=== PATIENT | female | born 1945 | race Caucasian/White ===

== ENCOUNTER 2022-01-03 09:52 | Outpatient (CLI) | payer MEDICARE, SELFPAY ==
[2022-01-03 11:24] LABS: Chloride* 100 mmol/L (96-114)
[2022-01-03 11:25] LABS: Albumin* 4.8 g/dL (3.3-5.0); Potassium* 4.7 mmol/L (3.6-5.1); Sodium* 138 mmol/L (135-149)
[2022-01-03 11:27] LABS: Cholesterol* 252 mg/dL (90-199)
[2022-01-03 11:28] LABS: Alanine Aminotransferase* 20 U/L (4-35); Alkaline Phosphatase* 85 U/L (40-150); Aspartate Amino Transferase* 33 U/L (12-35); Bilirubin Total* 0.4 mg/dL (0.1-1.5); Blood Urea Nitrogen* 27 mg/dL (7-30); Calcium* 10.1 mg/dL (8.4-10.6); Carbon Dioxide* 30 mmol/L (20-32); Creatinine* 1.2 mg/dL (0.5-1.5); Estimated Glomerular Filt Rate 47 ml/min; Glucose* 91 mg/dL (60-115); Total Protein* 7.3 g/dL (6.0-8.3); Triglycerides* 61 mg/dL (40-149)
[2022-01-03 11:29] LABS: HDL Cholesterol* 90 mg/dL (>=50); LDL Cholesterol Calculated 150 mg/dL (<100)
[2022-01-03 14:51] LABS: Creatinine Urine 326.7 mg/dL
[2022-01-03 14:56] LABS: Microalbumin Creatinine Ratio 20 mg/g (0-30); Microalbumin Urine 7 mg/dL
== END 2022-01-03 09:53 | disposition home or self-care (01) ==
PROVIDERS: PCP Family Medicine; Visit Provider Family Medicine
DX: E78.5 Hyperlipidemia, unspecified (principal); R94.4 Abnormal results of kidney function studies
CPT/HCPCS: 80053; 80061; 82043; 82570

== ENCOUNTER 2022-07-05 10:09 | Outpatient (CLI) | payer MEDICARE, SELFPAY | END 2022-07-05 10:10 | disposition home or self-care (01) | LOC: NFLDREF 07-06 14:10 | PROVIDERS: PCP Family Medicine; Referring Provider Family Medicine; Visit Provider Family Medicine | DX: I47.1 Supraventricular tachycardia (principal); E78.5 Hyperlipidemia, unspecified; M85.80 Other specified disorders of bone density and structure, unspecified site | CPT/HCPCS: 80053; 80061; 82306; 84443 ==

== ENCOUNTER 2022-09-14 12:58 | Outpatient (CLI) | payer MEDICARE, SELFPAY ==
--- NOTE | 2022-09-14 13:20 | CRLHL7_ITS ---
For Patients: As a result of the Cures Act, medical imaging exams and procedure reports are released immediately into your electronic medical record. You may view this report before your referring provider. If you have questions, please contact your health care provider. BILATERAL SCREENING MAMMOGRAM WITH COMPUTER-AIDED DETECTION AND TOMOSYNTHESIS TECHNIQUE: CC and MLO views were obtained. These mammographic images have been obtained using full-field digital technique. These mammographic images were interpreted with the benefit of computer-aided detection. Breast tomosynthesis was used in this interpretation. COMPARISON FILM: 07/29/21, 07/20/21, 07/03/20. FINDINGS: The breasts are heterogeneously dense, which may obscure small masses. IMPRESSION: There is no radiographic evidence for malignancy. ASSESSMENT: BI-RADS Category 2: Benign RECOMMENDATION: Routine screening mammogram in 1 year. A lay language report of this examination will be provided to the patient. JOSE BLISS M.D. Diagnostic/Nuclear Medicine Radiologist [email or web address] MICKEY:[email or web address] Transcribed: 09/15/2022, 2:[address]/Dictated by: Jose Bliss MD @ 09/15/2022 8:58:00 AM (Electronically Signed)
== END 2022-09-14 12:59 | disposition home or self-care (01) ==
LOC: MAMMO 12:59
PROVIDERS: PCP Family Medicine; Visit Provider Obstetrics & Gynecology
DX: Z12.31 Encounter for screening mammogram for malignant neoplasm of breast (principal); R92.2 Inconclusive mammogram
CPT/HCPCS: 77063; 77067

== ENCOUNTER 2022-12-26 14:30 | Outpatient (RCR) | payer MEDICARE, SELFPAY ==
--- NOTE | 2022-12-22 09:51 | PT.OPEX ---
PT [place] Outpatient Eval PT [facility] Outpatient Eval Start: 12/13/22 10:00 Freq: Status: Active Protocol: Document 12/13/22 11:00 ANGELINA (Rec: 12/13/22 14:09 ANGELINA [id number]) E-signed By Tello Valadez PT Physical Therapy Outpatient Evaluation Insurance Information Insurance Name Medicare B,[employer] Medical Diagnosis Lumbar back pain Treating Diagnosis Core weakness/deconditioning Referring MD David Subjective Subjective Pt. reports onset of LBP a couple of years ago with recent worsening the past 3 months. She has a hard time with any prolonged standing activities like ironing/dishes etc. She hasn't been able to walk for exercise like she used to due to pain symptoms. The acute high level pain has been lessoned recently by some stronger anti-inflammatories. She is very anxious about her diagnosis and potentially doing things that will aggravate her symptoms. PMH includes; Heart condition, seizures from epilepsy, neck and upper/mid back pain. Pain Comments 5-10 Date of Last Physician Visit 11/04/22 Current Work Status Retired Preferred Name Guadalupe Objective Other/Pertinent Objective LROM: flexion 100% without pain Extension 50% with pain Bilat. hip mobility WNL except mild limitation right ER negative slump and SLR bilat. abdominal/gluteal weakness Assessment Assessment/Impression Objectively, pt. demonstrates; a very slight framed body type; forward head and flattened spine posture; decreased dynamic balance during gait with mild loss of balance noted at times; excellent overall flexibility; full lumbar flexion without pain; limited lumbar extension with LBP noted; normal bilat. hip ROM/mobility with mild right ER limitation; negative slump and SLR testing; and weakness of abdominals and gluteals with general muscle deconditioning throughout upper and lower extremities. She would benefit from skilled therapy working on a progressive HEP with a lumbar flexion and postural correction bias. Primary Functional Limitations standing, walking, lifting, ironing Plan of Care Rehabilitation Potential Excellent Physical Therapy Goals 1. Pt. will be independent with HEP for self maintenance in 8 weeks. 2. Pt. will demonstrate improved core strength in 8-12 weeks. 3. Pt. will be able to stand longer for ADL's and walk for daily exercise again in 8-12 weeks. Coordination/Communication With Referral Source Treatment Plan/Direct Interventions Manual Therapy,Neuromuscular Re-ed,Self-Care/Home Management,Therapeutic Exercises Frequency/Duration Every other week for 4-8 visits over 12 weeks. Patient Will Be Discharged From Therapy Independent w/HEP, Independently Progressing Evaluation Billing Complexity Moderate Certification Information Physician Comment/Change : Physician NPI Number #
--- NOTE | 2023-02-21 07:53 | PT.OPEX ---
PT [place] Outpatient Eval PT [facility] Outpatient Eval Start: 12/13/22 10:00 Freq: Status: Active Protocol: Document 12/13/22 11:00 ANGELINA (Rec: 12/13/22 14:09 ANGELINA [id number]) E-signed By Tello Valadez PT Physical Therapy Outpatient Evaluation Insurance Information Insurance Name Medicare B,[employer] Medical Diagnosis Lumbar back pain Treating Diagnosis Core weakness/deconditioning Referring MD David Subjective Subjective Pt. reports onset of LBP a couple of years ago with recent worsening the past 3 months. She has a hard time with any prolonged standing activities like ironing/dishes etc. She hasn't been able to walk for exercise like she used to due to pain symptoms. The acute high level pain has been lessoned recently by some stronger anti-inflammatories. She is very anxious about her diagnosis and potentially doing things that will aggravate her symptoms. PMH includes; Heart condition, seizures from epilepsy, neck and upper/mid back pain. Pain Comments 5-10 Date of Last Physician Visit 11/04/22 Current Work Status Retired Preferred Name Guadalupe Objective Other/Pertinent Objective LROM: flexion 100% without pain Extension 50% with pain Bilat. hip mobility WNL except mild limitation right ER negative slump and SLR bilat. abdominal/gluteal weakness Assessment Assessment/Impression Objectively, pt. demonstrates; a very slight framed body type; forward head and flattened spine posture; decreased dynamic balance during gait with mild loss of balance noted at times; excellent overall flexibility; full lumbar flexion without pain; limited lumbar extension with LBP noted; normal bilat. hip ROM/mobility with mild right ER limitation; negative slump and SLR testing; and weakness of abdominals and gluteals with general muscle deconditioning throughout upper and lower extremities. She would benefit from skilled therapy working on a progressive HEP with a lumbar flexion and postural correction bias. Primary Functional Limitations standing, walking, lifting, ironing Plan of Care Rehabilitation Potential Excellent Physical Therapy Goals 1. Pt. will be independent with HEP for self maintenance in 8 weeks. 2. Pt. will demonstrate improved core strength in 8-12 weeks. 3. Pt. will be able to stand longer for ADL's and walk for daily exercise again in 8-12 weeks. Coordination/Communication With Referral Source Treatment Plan/Direct Interventions Manual Therapy,Neuromuscular Re-ed,Self-Care/Home Management,Therapeutic Exercises Frequency/Duration Every other week for 4-8 visits over 12 weeks. Patient Will Be Discharged From Therapy Independent w/HEP, Independently Progressing Evaluation Billing Complexity Moderate Certification Information Initial Certification Date 12/13/22 Ending Certification Date 05/17/23 Provider Signature Shows Agreement With POC & Medical Necessity Physician Signature & Date Requested Please Sign/Date Here Physician Comment/Change : Physician NPI Number #
== END 2023-03-07 11:20 | disposition home or self-care (01) ==
PROVIDERS: PCP Family Medicine; Visit Provider Family Medicine
DX: M54.50 Low back pain, unspecified (principal); M54.6 Pain in thoracic spine; R53.1 Weakness; Z51.89 Encounter for other specified aftercare
CPT/HCPCS: 97110; 97162

== ENCOUNTER 2023-01-11 15:34 | Outpatient (CLI) | payer MEDICARE, SELFPAY | END 2023-01-11 15:35 | disposition home or self-care (01) | PROVIDERS: PCP Family Medicine; Visit Provider Family Medicine | DX: E78.5 Hyperlipidemia, unspecified (principal); Z79.1 Long term (current) use of non-steroidal anti-inflammatories (NSAID) | CPT/HCPCS: 80048 ==

== ENCOUNTER 2023-03-30 09:30 | Outpatient (CLI) | payer MEDICARE, SELFPAY ==
--- OUTSIDE RECORDS SUMMARY | 2023-04-05 19:57 | XMS_ITS | Clinical Summary ---
Author Name Unknown Organization [facility] Address [address] [place] [address] Care Team Providers Care Precision Millwright Name Role Phone Unavailable Primary Care Provider Unavailabl e Source Comments Patient records contain information from all sites at [facility]. For routine questions regarding patient records, call [phone] during business hours, M-F 8:00 AM - 5:00 PM Central Time. Record requests for emergency care only can be directed to [phone] at any time.[facility] Allergies Active Allergy Reactions Criticality Noted Date Comments Boric Acid Other (see comments) 10/28/2016 Codeine Other (see comments) 10/28/2016 Divalproex Other (see comments) 09/12/2018 Gabapentin Other (see comments) 09/12/2018 Dry eyes Latex Other (see comments) 10/28/2016 Levetiracetam Other (see comments) 10/28/2016 Nortriptyline Other (see comments) 10/28/2016 Oxcarbazepine GI intolerance 10/28/2016 Polyquaternium 15 Other (see comments) 09/13/19 19 Dry eyes Peg 400-Propylene Glycol Other (see comments) 0 09/12/2018 Caused dry eyes. Topiramate Other (see comments) 10/28/2016 Trazodone Other (see comments) 09/12/2018 Off balance, migraines . Valproic Acid Other (see comments) 10/28/2016 Zinc Other (see comments) 10/28/2016 Medications Medication Sig Dispensed Refills Start Date End Date Status aspirin (ASPIRIN LOW DOSE) [address] tablet Take 1 tablet by mouth daily. 0 10/28/2016 Active dicyclomine (BENTYL) 10 mg capsule Take 1 capsule by mouth 2 (two) times a day. 0 10/28/2016 Active estradiol (ESTRACE) 0.5 mg tablet Take 1 tablet by mouth daily. 0 10/28/2016 Active glucosamine-silvano droit-vit C-Mn (GLUCOSAMINE-CHO NDROITIN COMPLX) per capsule Take 1 capsule by mouth 3 (three) times a day. 0 10/28/2016 Active multivitamin tablet Take 1 tablet by mouth daily. 0 10/28/2016 Active polyvinyl alcohol-povidone , PF, (REFRESH CLASSIC, PF,) 1.4-0.6 % ophthalmic solution 1-2 drops 4 (four) times a day as needed. 0 10/28/2016 Active acetaminophen (TYLENOL) 500 mg tablet Take 1 tablet by mouth every 4 (four) hours as needed. 0 10/28/2016 Active dilTIAZem (TIAZAC/TAZTIA XT) 180 mg ER capsule Take 180 mg by mouth daily. 0 07/05/2021 Active omeprazole (PriLOSEC) [address] capsule Take 1 capsule by mouth daily. 0 02/10/2021 Active cholecalciferol (VITAMIN D3) 25 mcg (1,000 Unit) capsule 1,000 Units daily. 0 Active ketorolac (ACULAR) 0.4 % ophthalmic solution Administer 1 drop into affected eye(s) daily as needed. 0 12/22/2020 Active POTASSIUM CHLORIDE ORAL Take 99 tablets by mouth daily. Potassium Gluconate 99 mg take one daily 0 01/05/2022 Active lamoTRIgine (LaMICtaL) 100 mg tablet Take 1 tablet (100 mg total) by mouth 2 (two) times a day. 180 tablet 3 11/15/2022 Active lamoTRIgine (LaMICtaL) 25 mg tablet Take 2 tablets (50 mg total) by mouth daily. 180 tablet 3 11/15/2022 Active LORazepam (ATIVAN) 0.5 mg tablet Take 1 tablet (0.5 mg total) by mouth 2 (two) times a day. 60 tablet 0 03/31/2023 Active LORazepam (ATIVAN) 0.5 mg tablet Take 1 tablet (0.5 mg total) by mouth 2 (two) times a day. 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 03/31/2023 Clinical Communication Department of Neurology in [place], [place] [address] [place] [address] Kody Cruz M.D. from Last 3 Months Social History Tobacco Use Types Packs/Day Years Used Date Smoking Tobacco: Never Smokeless Tobacco: Never Tobacco Cessation:Counseling Given: Not Answered Humiliation, Afraid, Rape, and Kick questionnair e Answer Date Recorded Within the last year, have y ou been afraid of your partner or ex-partner? No 08/14/2022 Within the last year, have y ou been humiliated or emotionally abused in other ways by your partner or ex-partner? No Within the last year, have y ou been kicked, hit, slapped, or otherwise physically hurt by your partner or ex-partner? No 08/14/2022 Within the last year, have y ou been raped or forced to have any kind of sexual activity by your partner or ex-partner? No 08/14/2022 Social Connection and Isolation Panel [NHANES] A nswer Date Recorded In a typical week, how many times do you talk on the phone with family, friends, or neighbors? Once a week 08/15/19 How often do you get togethe r with friends or relatives? Once a week 08/14/2022 How often do you attend chur ch or temple services? Never 08/14/2022 Do you belong to any clubs o r organizations such as mandaeism groups, unions, fraternal or athletic groups, or school groups? Yes 08/14/2022 How often do you attend meet ings of the clubs or organizations you belong to? 1 to 4 times per year 08/14/2022 Are you , , di vorced, , never , or living with a partner? 08/14/2022 AUDIT-C Answer Date Recorded Q1: How often do you have a drink containing alc ohol? Never 08/14/2022 Average Number of Drinks Not on file 023 Frequency of Binge Drinking Not on file 07/26 Overall Financial Resource Strain (CARDIA) Answe r Date Recorded How hard is it for you to pa y for the very basics like food, housing, medical care, and heating? Not hard at all 08/14/2022 [facility] [place] of Occupat ional Health - Occupational Stress Questionnaire Answer Date Recorded Do you feel stress - tense, restless, nervous, or anxious, or unable to sleep at night because your mind is troubled all the time - these days? Only a little 08/14/2022 Exercise Vital Sign Answer Date Recorde d On average, how many days pe r week do you engage in moderate to strenuous exercise (like a brisk walk)? 0 days 08/14/2022 On average, how many minutes do you engage in exercise at this level? 0 min 08/14/2022 Hunger Vital Sign Answer Date Recorded Within the past 12 months, y ou worried that your food would run out before you got the money to buy more. Never true 08/15/19 23 Within the past 12 months, t he food you bought just didn't last and you didn't have money to get more. Never true 08/14/2022 PRAPARE - Transportation Answer Date Re corded In the past 12 months, has l ack of transportation kept you from medical appointments or from getting medications? No 07/26 In the past 12 months, has l ack of transportation kept you from meetings, work, or from getting things needed for daily living? No 08/14/2022 Housing Stability Vital Sign Answer Joey e Recorded In the last 12 months, was t here a time when you were not able to pay the mortgage or rent on time? No 08/14/2022 In the last 12 months, how many places have you lived? 1 08/14/2022 In the last 12 months, was t here a time when you did not have a steady place to sleep or slept in a skilled nursing (including now)? No 08/14/2022 Nutrition Answer Date Recorded Nutrition: EVOO Fat Source No 08/14 On average, how many serving s of fruits and vegetables do you eat per day (serving size is equal to 1 cup or approximately the size of a tennis ball)? 2-3 08/14/2022 Dental Answer Date Recorded Dental: Regular Dentist Yes 05/20/19 Employment Answer Date Recorded Employment status Retired 08/14/2022 Education Answer Date Recorded What is the highest level of school you have completed or the highest degree you have received? Some college, no degree 08/21/2019 Sex and Gender Information Value Date Recorded Sex Assigned at Female 09/08/2018 11:50 AM CDT Gender Identity Female 09/08/2018 11:50 AM CDT Sexual Orientation Straight 09/08/2018 11 :50 AM CDT Last Filed Vital Signs Vital Sign Reading Time Taken Comments Blood Pressure 137/72 11/15/2022 1:01 PM CDT Pulse 79 11/15/2022 1:01 PM CDT Temperature - - Respiratory Rate - - Oxygen Saturation - - Inhaled Oxygen Concentration - - Weight 42.4 kg (93 lb 7.6 oz) 11/15/2022 1:01 PM CDT Height - - Body Mass Index - - Plan of Treatment Health Maintenance Due Date Last Done Comments Hepatitis C Screening 1945 Depression Screening (Annual PHQ-2) 03/27/2023 Fall Risk Screen (Annual) 03/27/2023 DTaP,Tdap,and Td Vaccines (5 - Td or Tdap) 12/02/2026 12/02/2016, 11/15/2007, 06/09/2000, Additional history exists Pneumococcal vaccine (65+ years) Completed 11/19/19 15, 01/06/2012 Zoster Vaccines Completed 02/02/2021, 11/25, 03/26/2008 COVID-19 Vaccine Completed 12/15/2022, 02/2022, 07/01/2021, Additional history exists Influenza Vaccine Completed 12/15/2022, , 12/06/2021, Additional history exists
--- OUTSIDE RECORDS SUMMARY | 2023-04-05 19:57 | XMS_ITS | Referral Summary ---
Author Name Unknown Organization [facility] Address [address] [place] [address] Care Team Providers Care Sorter/Assay Tech Name Role Phone Unavailable Primary Care Provider Unavailabl e Source Comments Patient records contain information from all sites at [facility]. For routine questions regarding patient records, call [phone] during business hours, M-F 8:00 AM - 5:00 PM Central Time. Record requests for emergency care only can be directed to [phone] at any time.[facility] Encounters Date Type Department Care Team Description 04/04/2023 Clinical Communication Department of Neurology in [place], [place] [address] [place] [address] Kody Cruz M.D. 03/31/2023 Clinical Communication Department of Neurology in [place], [place] [address] [place] [address] Kody Cruz M.D. from Last 3 Months Allergies Active Allergy Reactions Criticality Noted Date [...] Epilepticus 08/28/2019 Anxiety 08/28/2019 Headache Unspecified 08/28/2019 Social History Tobacco Use Types Packs/Day Years [...] 08/14/2022 How often do you attend chur or sabianism services? Never 08/14/2022 Do you belong to any clubs o r organizations such as protestant groups, unions, fraternal or athletic groups, or [...] and heating? Not hard at all 08/14/2022 [facility] [place] of Occupat ional Health - Occupational Stress [...] place to sleep or slept in a alf (including now)? No 08/14/2022 Nutrition Answer Date [...] Mass Index - - Plan of Treatment Not on file
--- OUTSIDE RECORDS SUMMARY | 2023-04-05 19:57 | XMS_ITS | Encounter Summary ---
Author Name Unknown Organization [facility] Address [address] [place] [address] Care Team Providers Care Cargo Surveyor Name Role Phone Unavailable Primary Care Provider Unavailabl e Reason for Referral * Outpatient (Routine) - Closed Specialty Diagnoses / Procedures Referred By Contac t Referred To Contact Diagnoses Headache Mixed Procedures US Temporal Artery Gordo Wolfe M.D., M.P.H[facility] [address] [address] Health System Referral ID Status Reason Start Date Expiration Date Visits Re quested Visits Authorized [id number] Closed 08/18/2022 08/18/2023 1 1 Reason for Visit * Outpatient (Routine) - Closed Specialty Diagnoses / Procedures Referred By Contac t Referred To Contact Diagnoses Headache Mixed Procedures US Temporal Artery Gordo Wolfe M.D., M[facility]P.[facility] [address] [address] Health System Referral ID Status Reason Start Date Expiration Date Visits Re quested Visits Authorized [id number] Closed 08/18/2022 08/18/2023 1 1 Encounter Details Date Type Department Care Team (Latest Contact Info) Description 09/26/2022 1:00 PM CDT - 09/26/2022 11:59 PM CDT Hospital Encounter Department of Radiology, [facility], in [place], [place] [address] [place] [address] Gordo Wolfe M.D., M.P.H[facility] [address] [place] [address] Headache Mixed Discharge Disposition: Home or Self Care Social History Tobacco Use Types Packs/Day Years Used Date Smoking Tobacco: Never Smokeless Tobacco: Never Humiliation, Afraid, Rape, and Kick questionnair e [...] friends, or neighbors? Once a week 08/15/19 23 How often do you get togethe r with friends or relatives? Once a week 08/14/2022 How often do you attend chur ch or zoroastrianism services? Never 08/14/2022 Do you belong to [...] and heating? Not hard at all 08/14/2022 [facility] [place] of Occupat ional Health - Occupational Stress [...] place to sleep or slept in a usp (including now)? No 08/14/2022 Nutrition Answer Date [...] Orientation Straight 09/08/2018 11 :50 AM CDT documented as of this encounter Medications at Time of Discharge Medication Sig Dispensed Refills Start Date End Date acetaminophen (TYLENOL) 500 mg tablet Take 1 tablet by mouth every 4 (four) hours as needed. 0 10/28/2016 aspirin (ASPIRIN LOW DOSE) [address] tablet Take 1 tablet by mouth daily. 0 10/28/2016 cholecalciferol (VITAMIN D3) 25 mcg (1,000 Unit) capsule 1,000 Units daily. 0 dicyclomine (BENTYL) 10 mg capsule Take 1 capsule by mouth 2 (two) times a day. 0 10/28/2016 dilTIAZem (TIAZAC/TAZTIA XT) 180 mg ER capsule Take 180 mg by mouth daily. 0 07/05/2021 estradiol (ESTRACE) 0.5 mg tablet Take 1 tablet by mouth daily. 0 10/28/2016 glucosamine-chondroit -vit C-Mn (GLUCOSAMINE-CHONDROI TIN COMPLX) per capsule Take 1 capsule by mouth 3 (three) times a day. 0 10/28/2016 ketorolac (ACULAR) 0.4 % ophthalmic solution Administer 1 drop into affected eye(s) daily as needed. 0 12/22/2020 multivitamin tablet Take 1 tablet by mouth daily. 0 10/28/2016 omeprazole (PriLOSEC) [address] capsule Take 1 capsule by mouth daily. 0 02/10/2021 polyvinyl alcohol-povidone, PF, (REFRESH CLASSIC, PF,) 1.4-0.6 % ophthalmic solution 1-2 drops 4 (four) times a day as needed. 0 10/28/2016 POTASSIUM CHLORIDE ORAL Take 99 tablets by mouth daily. Potassium Gluconate 99 mg take one daily 0 01/05/2022 lamoTRIgine (LaMICtaL) 100 mg tablet TAKE 1 TABLET TWICE A DAY 180 tablet 3 03/08/2022 11/15/2022 lamoTRIgine (LaMICtaL) 25 mg tablet TAKE 2 TABLETS DAILY 180 tablet 3 03/08/2022 11/15/2022 ALPRAZolam (XANAX) 0.5 mg tablet Take 1-2 tablets (0.5-1 mg total) by mouth See Admin Instructions. 1-2 tablets by mouth 30 minutes prior to procedure 2 tablet 0 08/19/2022 10/18/2022 ascorbic acid, vitamin C, (vitamin C) 1,000 mg tablet Take 1 tablet by mouth daily. 0 10/28/2016 10/18/2022 CALCIUM CARBONATE ORAL Take 1,500 mg by mouth daily. 0 07/12/2022 10/18/2022 cholecalciferol (VITAMIN D3) 2,000 Unit capsule Take 1 capsule by mouth daily. 0 10/28/2016 11/15/2022 cycloSPORINE (RESTASIS) 0.05 % ophthalmic emulsion Administer 1-2 drops into both eyes 2 (two) times a day. 0 11/15/2022 famotidine (PEPCID) 20 mg tablet 0 07/31/2020 11/15/2022 LORazepam (ATIVAN) 0.5 mg tablet Take 1 tablet (0.5 mg total) by mouth 2 (two) times a day. 180 tablet 1 03/15/2022 10/18/2022 methylcellulose, laxative, (CITRUCEL) 500 mg tablet Take 3 tablets by mouth 3 (three) times a day. 0 11/15/2022 minocycline (MINOCIN,DYNACIN) 50 mg capsule as needed. 0 06/06/2018 11/15/2022 nortriptyline (PAMELOR) 10 mg capsule Take 2 capsules (20 mg total) by mouth at bedtime. 180 capsule 3 08/25/2020 11/15/2022 pyridoxine, vitamin B6, (vitamin B-6) 100 mg tablet Take 1 tablet by mouth daily. 0 10/28/2016 11/15/2022 documented as of this encounter Plan of Treatment Not on file documented as of this encounter Procedures Procedure Name Priority Date/Time Associated Diagnosis Comments US TEMPORAL ARTERY RAD - Routine (most inpatients and all outpatients) 09/26/2022 1:32 PM CDT Headache Mixed documented in this encounter Results * US Temporal Artery (09/26/2022 1:32 PM CDT) Anatomical Region Laterality Modality Head, Chest, Ultrasound RST LOS, Ultrasound ARZ LOS, Neuroradiology FLA LOS, Procedural N/A Ultrasound 09/26/2022 1:49 PM CDT Impressions 09/26/2022 1:49 PM CDT Negative for vasculitis bilaterally. Narrative 09/26/2022 1:49 PM CDT EXAM: US TEMPORAL ARTERY Exam performed with color and spectral Doppler analysis. COMPARISON: None FINDINGS: The bilateral common temporal artery and the frontal and parietal branches are patent with normal wall thickness. Specifically, no wall thickening to suggest vasculitis. Procedure Note Myriam Sheikh M.D. - 09/26/2022 EXAM: US TEMPORAL ARTERY Exam performed with color and spectral Doppler analysis. COMPARISON: None FINDINGS: The bilateral common temporal artery and the frontal andparietal branches are patent with normal wall thickness. Specifically, no wall thickening to suggestvasculitis. IMPRESSION: Negative for vasculitis bilaterally. oGrdo Wolfe M.D., M.P.H. [facility] documented in this encounter Visit Diagnoses Diagnosis Headache Mixed documented in this encounter
--- OUTSIDE RECORDS SUMMARY | 2023-04-05 19:57 | XMS_ITS ---
Author Name Unknown Organization [facility] Address [address] [place] [address] Care Team Providers Care Truck Driver Teamster Name Role Phone Unavailable Unavailable Unavailable Surgery Details Not on file Complications Check Surgery Details section. Procedure Estimated Blood Loss Check Surgery Details section. Procedure Findings Check Surgery Details section. Procedure Specimens Taken Check Surgery Details section.
--- OUTSIDE RECORDS SUMMARY | 2023-04-05 19:57 | XMS_ITS | Encounter Summary ---
Author Name Unknown Organization [facility] Address [address] [place] [address] Care Team Providers Care Snuff Container Inspector Name Role Phone Unavailable Primary Care Provider Unavailabl e Reason for Visit * Reason Comments Med Refill Encounter Details Date Type Department Care Team (Late st Contact Info) Description 11/16/2022 Refill Department of Sleep Medicine in [place], [place] [address] [place] [address] Gordo Wolfe M.D., M.P.H. [address], [place] [phone] Med Refill Social History Tobacco Use Types Packs/Day Years [...] often do you attend chur ch or buddhism services? Never 08/14/2022 Do you belong to [...] and heating? Not hard at all 08/14/2022 [facility] [place] of Occupat ional Health - Occupational Stress [...] place to sleep or slept in a jail (including now)? No 08/14/2022 Nutrition Answer Date [...] AM CDT documented as of this encounter Miscellaneous Notes * Telephone Encounter - Breonna Rowe L.P.N. - 11/29/2022 4:33 PM CDT Patient plans on having primary doctor in [place] refill Lorazepam . * Telephone Encounter - Breonna Rowe L.P.N. - 11/29/2022 4:28 PM CDT Patient has appt. With primary provider in [place] tomorrow 11/30/22 and will discuss Lorazepam refill at that time. * Telephone Encounter - Breonna Rowe L.P.N. - 11/22/2022 2:32 PM CDT Spoke to Pharmacist - Meme. Unable to fill Lorazepam - (controlled drug ) under DENNIS listed for [place]. Attempted to contact patient. Will need to have primary MD refill medication. Patient has enough medication through 12/24/22. * Telephone Encounter - Sherry Ramon L.P.N. - 11/21/2022 11:22 AM CDT Patient's PCP is not within [facility]. Please advise. Thank you. * Telephone Encounter - Leland Moser - 11/16/2022 1:08 PM CDT Nurse review: Unable to forward request to provider; Pharmacy Communication. The DENNIS number provider is not registered int the same state where the Rx was written. A separate DENNIS number is required for each state in which the prescriber is licensed. Please provider a valid DENNIS number Primary Provider: No primary care provider on file. Requested Prescriptions Pending Prescriptions Disp Refills LORazepam (ATIVAN) 0.5 mg tablet 180 tablet 1 Sig: Take 1 tablet (0.5 mg total) by mouth 2 (two) times a day. documented in this encounter Plan of Treatment Not on file documented as of this encounter Visit Diagnoses Not on filedocumented in this encounter
--- OUTSIDE RECORDS SUMMARY | 2023-04-05 19:57 | XMS_ITS | Encounter Summary ---
Author Name Unknown Organization [facility] Address [address] [place] [address] Care Team Providers Care Carpet Journeyman Name Role Phone Unavailable Primary Care Provider Unavailabl e Encounter Details Date Type Department Care Team (Late st Contact Info) Description 03/31/2023 Clinical Communication Department of Neurology in [place], [place] [address] [phone] Kody Cruz M.D. [address] [phone] Social History Tobacco Use Types Packs/Day Years [...] often do you attend chur ch or bahai services? Never 08/14/2022 Do you belong to any clubs o r organizations such as orthodox groups, unions, fraternal or athletic groups, or [...] and heating? Not hard at all 08/14/2022 [facility] of Occupat ional Health - Occupational Stress [...] place to sleep or slept in a assisted (including now)? No 08/14/2022 Nutrition Answer Date [...] Telephone Encounter - Breonna Rowe L.P.N. - 03/31/2023 3:57 PM DRAGLINE ENGINEER Patient notified of status of refill. Attempted to schedule patient with Dr. Cruz but was told that there has to be an order. Patient informed that Dr. Cruz is out and once order has been placed will be notified. LINE ENGINEER documented in this encounter Plan of Treatment Not on file documented as of this encounter Visit Diagnoses Not on filedocumented in this encounter
--- OUTSIDE RECORDS SUMMARY | 2023-04-05 19:57 | XMS_ITS | Encounter Summary ---
Author Name Unknown Organization [facility] Address [address] [place] [address] Care Team Providers Care Livestock Haulier Name Role Phone Unavailable Primary Care Provider Unavailabl e Encounter Details Date Type Department Care Team (Late st Contact Info) Description 04/04/2023 Clinical Communication Department of Neurology in [place], [place] [address] [place] [phone] Kody Cruz M.D. [address] [place] [phone] Social History Tobacco Use Types Packs/Day Years [...] often do you attend chur ch or spiritism services? Never 08/14/2022 Do you belong to any clubs o r organizations such as mormon groups, unions, fraternal or athletic groups, or [...] and heating? Not hard at all 08/14/2022 [facility] of Occupat ional Health - Occupational Stress [...] place to sleep or slept in a group home (including now)? No 08/14/2022 Nutrition Answer Date [...] AM CDT documented as of this encounter Plan of Treatment Not on file documented as of this encounter Visit Diagnoses Not on filedocumented in this encounter
--- OUTSIDE RECORDS SUMMARY | 2023-04-05 19:57 | XMS_ITS | Encounter Summary ---
Author Name Unknown Organization [facility] Address [address] [place] [address] Care Team Providers Care Etch Operator Semiconductor Wafers Name Role Phone Unavailable Primary Care Provider Unavailabl e Reason for Visit * Reason Comments Migraine Seizures Follow up * Outpatient (Routine) - Closed Specialty Diagnoses / Procedures Referred By Rich goff Referred To Contact Neurology Gordo Wolfe M.D., M.P.H. [address] [place] [phone] [facility] Region Referral ID Status Reason Start Date Expiration Date Visits Re quested Visits Authorized [id number] Closed 08/18/2022 08/17/2025 1 1 Encounter Details Date Type Department Care Team (Latest Contact Info) Description 11/15/2022 1:00 PM CDT Comprehensive Visit Department of Sleep Medicine in [place] [address] [place] [address] Gordo Wolfe M.D., M.P.H. 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 Never 08/14/2022 Do you belong to any clubs o r organizations such as scientology groups, unions, fraternal or athletic groups, or [...] and heating? Not hard at all 08/14/2022 [facility] [place] of Occupat ional Health - Occupational Stress [...] money to buy more. Never true 08/15/19 Within the past 12 months, t he [...] place to sleep or slept in a long term (including now)? No 08/14/2022 Nutrition Answer Date [...] AM CDT documented as of this encounter Last Filed Vital Signs Vital Sign Reading Time Taken Comments Blood Pressure 137/72 11/15/2022 1:01 PM CDT Pulse 79 11/15/2022 1:01 PM CDT Temperature - - Respiratory Rate - - Oxygen Saturation - - Inhaled Oxygen Concentration - - Weight 42.4 kg (93 lb 7.6 oz) 11/15/2022 1:01 PM CDT Height - - Body Mass Index - - documented in this encounter Progress Notes * Gordo Wolfe M.D., M.P.H. - 11/15/2022 1:00 PM CDT SUBJECTIVE Referring Provider: Gordo Wolfe M.D., M.P.H. CHIEF COMPLAINT / REASON FOR VISIT Guadalupe Farias is a 77 y.o. female who presents for evaluation of Migraine and Seizures (Follow up). HISTORY OF PRESENT ILLNESS Patient presents with her for follow-up on history of seizures, headaches and anxiety. She provide the story for me of 90 minutes of shaking and rapid heart rate that she thought might be a seizure. As I review her prior history this is not the kind of seizure she is ever had. Spent a long time discussing with her that I thought this was unlikely to be a seizure because her study shows had a different stereotype further having both sides her body shaking would be inconsistent with preservation of consciousness. She admits that she is doing really quite well with her seizure medicines and isn't having any of the typical events for which she had sought my help some many years ago at [facility]. She has headaches previously described in my earlier notes. 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 I also checked ultrasounds of the temporal arteries and ESR and CRP and these were unremarkable. She said her headaches are some better but she still is anxious about that. No past medical history on file. No past surgical history on file. MEDICATIONS: Current Outpatient Medications: acetaminophen (TYLENOL) 500 mg tablet, Take 1 tablet by mouth every 4 (four) hours as needed., Disp: , Rfl: aspirin (ASPIRIN LOW DOSE) [address] tablet, Take 1 tablet by mouth daily., Disp: , Rfl: cholecalciferol (VITAMIN D3) 25 mcg (1,000 Unit) capsule, 1,000 Units daily., Disp: , Rfl: dicyclomine (BENTYL) 10 mg capsule, Take 1 capsule by mouth 2 (two) times a day. , Disp: , Rfl: dilTIAZem (TIAZAC/TAZTIA XT) 180 mg ER capsule, Take 180 mg by mouth daily., Disp: , Rfl: estradiol (ESTRACE) 0.5 mg tablet, Take 1 tablet by mouth daily., Disp: , Rfl: zmenjzncvya-teaqafdsf-fqb C-Mn (GLUCOSAMINE-CHONDROITIN COMPLX) per capsule, Take 1 capsule by mouth 3 (three) times a day., Disp: , Rfl: ketorolac (ACULAR) 0.4 % ophthalmic solution, Administer 1 drop into affected eye(s) daily as needed., Disp: , Rfl: lamoTRIgine (LaMICtaL) 100 mg tablet, Take 1 tablet (100 mg total) by mouth 2 (two) times a day., Disp: 180 tablet, Rfl: 3 lamoTRIgine (LaMICtaL) 25 mg tablet, Take 2 tablets (50 mg total) by mouth daily., Disp: 180 tablet, Rfl: 3 LORazepam (ATIVAN) 0.5 mg tablet, Take 1 tablet (0.5 mg total) by mouth 2 (two) times a day., Disp:180 tablet, Rfl: 1 multivitamin tablet, Take 1 tablet by mouth daily., Disp: , Rfl: omeprazole (PriLOSEC) [address] capsule, Take 1 capsule by mouth daily., Disp: , Rfl: polyvinyl alcohol-povidone, PF, (REFRESH CLASSIC, PF,) 1.4-0.6 % ophthalmic solution, 1-2 drops 4 (four) times a day as needed., Disp: , Rfl: POTASSIUM CHLORIDE ORAL, Take 99 tablets by mouth daily. Potassium Gluconate 99 mg take one daily, Disp: , Rfl: pyridoxine, vitamin B6, (vitamin B-6) 100 mg tablet, Take 1 tablet by mouth daily., Disp: , Rfl: ALLERGY: Allergies Allergen Reactions Boric Acid Other (see comments) Codeine Other (see comments) Divalproex Other (see comments) Gabapentin Other (see comments) Dry eyes Latex Other (see comments) Levetiracetam Other (see comments) Nortriptyline Other (see comments) Oxcarbazepine GI intolerance Polyquaternium 15 Other (see comments) Dry eyes Systane (Propylene Glycol) [Peg 400-Propylene Glycol] Other (see comments) Caused dry eyes. Topiramate Other (see comments) Trazodone Other (see comments) Off balance, migraines . Valproic Acid Other (see comments) Zinc Other (see comments) No family history on file. Social History Socioeconomic History Marital status: Spouse name: Not on file Number of children: Not on file Years of education: Not on file Highest education level: Some college, no degree Occupational History Not on file Tobacco Use Smoking status: Never Smokeless tobacco: Never Substance and Sexual Activity Alcohol use: Not on file Drug use: Not on file Sexual activity: Not on file Other Topics Concern Not on file Social History Narrative Not on file Social Determinants of Health Financial Resource Strain: Low Risk (08/14/2022) Overall Financial Resource Strain (CARDIA) Difficulty of Paying Living Expenses: Not hard at all Food Insecurity: No Food Insecurity (08/14/2022) Hunger Vital Sign Worried About Running Out of Food in the Last Year: Never true Ran Out of Food in the Last Year: Never true Transportation Needs: No Transportation Needs (08/14/2022) PRAPARE - Transportation Lack of Transportation (Medical): No Lack of Transportation (Non-Medical): No Physical Activity: Inactive (08/14/2022) Exercise Vital Sign Days of Exercise per Week: 0 days Minutes of Exercise per Session: 0 min Intimate Partner Violence: Not At Risk (08/14/2022) Humiliation, Afraid, Rape, and Kick questionnaire Fear of Current or Ex-Partner: No Emotionally Abused: No Physically Abused: No Sexually Abused: No Housing Stability: Low Risk (08/14/2022) Housing Stability Vital Sign Unable to Pay for Housing in the Last Year: No Number of Places Lived in the Last Year: 1 Unstable Housing in the Last Year: No OBJECTIVE Vitals: 11/15/22 1301 BP: 137/72 BP Location: Left arm Patient Position: Sitting Cuff Size: Small Pulse: 79 Weight: 42.4 kg PHYSICAL EXAM COGNITION: Alert and oriented x 4. CRANIAL NERVES: industrial engineering intern II-XII intact and symmetric. GAIT: Normal I did not do a detailed examination as we were reviewing her tests at today's visit. I am more concerned that the racing pulse and shaking might be a panic attack but I am quite certain it is not a seizure. Impression: Encounter Diagnoses Name Primary? 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 Cruz will take excellent care of her and I refilled her lamotrigine. I personally spent 50 minutes in care of the patient today. Time includes both non face to face andface to face patient care. Gordo Wolfe M.D., M.P.H. 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
--- OUTSIDE RECORDS SUMMARY | 2023-04-05 19:58 | XMS_ITS | Encounter Summary ---
Author Name Unknown Organization [facility] Address [address] [place] [address] Care Team Providers Care Solar Process Engineer Name Role Phone Unavailable Primary Care Provider Unavailabl e Reason for Referral * Outpatient (Routine) - Closed Specialty Diagnoses / Procedures Referred By Rich goff Referred To Contact Neurology Diagnoses Headache Unspecified Headache Mixed Karen David M.D. [address] [place] [phone] [facility] Region Referral ID Status Reason Start Date Expiration Date Visits Re quested Visits Authorized [id number] Closed 07/12/2022 07/12/2023 1 1 Encounter Details Date Type Department Care Team (Late st Contact Info) Description 07/12/2022 [facility] [address] [place] [address] Karen David M.D. [address] [place] [phone] Headache Unspecified (Primary Dx); Headache Mixed Social History Tobacco Use Types Packs/Day Years Used Date Smoking Tobacco: Never Smokeless Tobacco: Never Humiliation, Afraid, Rape, and Kick questionnair e Answer Date Recorded Within the last year, have y ou been afraid of your partner or ex-partner? No 04/02/2021 Within the last year, have y ou been humiliated or emotionally abused in other ways by your partner or ex-partner? No Within the last year, have y ou been kicked, hit, slapped, or otherwise physically hurt by your partner or ex-partner? No 04/02/2021 Within the last year, have y ou been raped or forced to have any kind of sexual activity by your partner or ex-partner? No 04/02/2021 Social Connection and Isolation Panel [NHANES] A nswer Date Recorded In a typical week, how many times do you talk on the phone with family, friends, or neighbors? Once a week 04/02/2021 How often do you get together with friends or re latives? Never 04/02/2021 How often do you attend caodaism or christianity serv ices? Never 04/02/2021 Do you belong to any clubs o r organizations such as caodaism groups, unions, fraternal or athletic groups, or school groups? No 04/02/2021 How often do you attend meet ings of the clubs or organizations you belong to? Never 04/02/2021 Are you , , di vorced, , never , or living with a partner? 04/02/2021 AUDIT-C Answer Date Recorded Q1: How often do you have a drink containing alc ohol? Never 04/02/2021 Average Number of Drinks Not on file 022 Frequency of Binge Drinking Not on file 09/2021 Overall Financial Resource Strain (CARDIA) Answe r Date Recorded How hard is it for you to pa y for the very basics like food, housing, medical care, and heating? Not hard at all 04/02/2021 [facility] [place] of Occupat ional Health - Occupational Stress Questionnaire Answer Date Recorded Do you feel stress - tense, restless, nervous, or anxious, or unable to sleep at night because your mind is troubled all the time - these days? Only a little 04/02/2021 Exercise Vital Sign Answer Date Recorde d On average, how many days pe r week do you engage in moderate to strenuous exercise (like a brisk walk)? 0 days 04/02/2021 On average, how many minutes do you engage in exercise at this level? 0 min 04/02/2021 Hunger Vital Sign Answer Date Recorded Within the past 12 months, y ou worried that your food would run out before you got the money to buy more. Never true 04/02/19 22 Within the past 12 months, t he food you bought just didn't last and you didn't have money to get more. Never true 04/02/2021 PRAPARE - Transportation Answer Date Re corded In the past 12 months, has l ack of transportation kept you from medical appointments or from getting medications? No 09/2021 In the past 12 months, has l ack of transportation kept you from meetings, work, or from getting things needed for daily living? No 04/02/2021 Housing Stability Vital Sign Answer Joey e Recorded In the last 12 months, was t here a time when you were not able to pay the mortgage or rent on time? No 04/02/2021 In the last 12 months, how many places have you lived? 1 04/02/2021 In the last 12 months, was t here a time when you did not have a steady place to sleep or slept in a jail (including now)? No 04/02/2021 Nutrition Answer Date Recorded Nutrition: EVOO Fat Source No 04/02 On average, how many serving s of fruits and vegetables do you eat per day (serving size is equal to 1 cup or approximately the size of a tennis ball)? 2-3 04/02/2021 Dental Answer Date Recorded Dental: Regular Dentist Yes 05/20/19 Employment Answer Date Recorded Employment status Unemployed/not in th e paid workforce and NOT seeking employment 04/02/2021 Education Answer Date Recorded What is the [...] as of this encounter Plan of Treatment Scheduled Referrals Name Type Priority Associated Diagnoses Orde r Schedule Neurology Referral Outpatient Referral Routine Headache Unspecified Headache Mixed Expected: 07/12/2022 (Approximate), Expires: 10/12/2023 documented as of this encounter Visit Diagnoses Diagnosis Headache Unspecified- Primary Headache Mixed documented in this encounter
--- OUTSIDE RECORDS SUMMARY | 2023-04-05 19:58 | XMS_ITS | Clinical Summary ---
Author Name Unknown Organization [facility] Address [place], [place] [address] Care Team Providers Care Board Saw Runner Name Role Phone Karen David MD Primary Care Provider + Allergies Active Allergy Reactions Criticality Noted Date Comments Codeine Dizziness 10/28/2016 Divalproex *Unknown 09/12/2018 Gabapentin *Unknown 09/12/2018 Dry eyes Latex *Unknown 10/28/2016 Levetiracetam *Unknown 10/28/2016 Nortriptyline *Unknown 10/28/2016 Oxcarbazepine GI Upset 10/28/2016 Topiramate *Unknown 10/28/2016 Trazodone *Unknown 09/12/2018 Off balance, migraines . Valproic Acid *Unknown 10/28/2016 Medications Medication Sig Dispensed Refills Start Date End Date Status estradioL (ESTRACE) 0.5 mg tablet Take 1 Tablet by mouth once daily. 0 05/21/2021 Active ibuprofen (ADVIL; MOTRIN) 600 mg tablet Take 1 Tablet by mouth 3 times daily with meals. 0 06/02/2017 Active ketorolac 0.4 % (ACULAR LS) 0.4 % ophthalmic solution Place 1 Drop into both eyes one time if needed. 0 12/22/2020 Active lamoTRIgine (LAMICTAL) 25 mg tablet Take 50 mg by mouth once daily. 0 04/08/2021 Active LORazepam (ATIVAN) 0.5 mg tab Take 1 Tablet by mouth once every other day if needed. 0 07/17/2021 Active methylcellulose, Laxative, (CITRUCEL) 500 mg tab Take 3 Tablets by mouth one time if needed. 0 Active omeprazole (PRILOSEC) 20 mg Delayed-Release capsule Take 1 Capsule by mouth one time. 0 05/11/2021 Active ascorbic acid, vitamin C, (VITAMIN C) 1,000 mg tablet Take 1 Tablet by mouth once daily. 0 01/03/2017 Active dicyclomine (BENTYL) 10 mg capsule Take 1 Capsule by mouth one time if needed. 0 05/08/2021 Active aspirin (ECOTRIN) 81 mg enteric coated tablet Take 1 Tablet by mouth once daily. 0 Active dilTIAZem CD (CARDIZEM CD) 180 mg extended release 24 hr capsuleIndications:T achyarrhythmia Take 1 Capsule (180 mg) by mouth once daily. 90 Capsule 3 12/20/2022 Active Immunizations Name Administration Dates Next Due DT (Age < 7 years) 03/16/1990 Influenza A (H1N1), Inactivated 02/13/2009 Influenza, High-dose Quadrivalent Inactivated Oral Polio Vaccine 03/16/1990 Pneumococcal Poly,23-Valent (Pneumovax) 01/06/20 12 Pneumococcal conj 13-Valent (Prevnar 13) 015 Td (Age >=7 Years) 06/09/2000 Tdap 12/02/2016,11/15/2007 Tdap, Unspecified 12/02/2016,11/15/2007 Zoster (Shingrix-RZV, recombinant) 02/02/2021, Zoster (Zostavax-ZVL, live) 03/26/2008 Social History Tobacco Use Types Packs/Day Years Used Date Smoking Tobacco: Never Smokeless Tobacco: Never Alcohol Use Standard Drinks/Week Comments Not Currently 0 (1 standard drink = 0.6 oz pur e alcohol) Social Connections Answer Date Recorded Frequency of Communication with Friends and Fami ly Not on file 03/27/2021 Financial Resource Strain Answer Date R ecorded Difficulty of Paying Living Expenses Not on file 03/27/2021 Difficulty of Paying Living Expenses Not on file 03/27/2021 Sex and Gender Information Value Date Recorded Sex Assigned at Not on file Gender Identity Not on file Sexual Orientation Not on file Obstetrics History Last Filed Vital Signs Vital Sign Reading Time Taken Comments Blood Pressure 122/78 07/19/2021 11:04 AM CDT Pulse 84 07/19/2021 11:04 AM CDT Temperature - - Respiratory Rate 16 12/30/2016 10:1 8 AM CDT Oxygen Saturation - - Inhaled Oxygen Concentration - - Weight 44.6 kg (98 lb 4.8 oz) 11:04 AM CDT with shoes Height - - Body Mass Index - - Plan of Treatment Health Maintenance Due Date Last Done Comments Depression screening for age 12+ 1958 BMI (ht and wt on same day) for age 18+ 1964 Hepatitis C screening for ag e 18-79 1964 DEXA/DXA scan for age 65+ 2011 Medicare Wellness for age 65+ 2011 COVID-19 vaccine series (2022- season) 2022 12/06/2021, 07/01/2021, 12/29/2020, Additional history exists Influenza for age 65+ 11/25/2022 12/04/2020, 009 Tetanus booster 12/02/2026 12/02/2016, 10/2016, 11/15/2007, Additional history exists Pneumococcal series for age 65+ Completed 5, 01/06/2012 Tdap Completed 12/02/2016, 10/2016, 11/15/2007, Additional history exists Zoster (shingles) series for age 50+ Completed 02/02/2021, 12/04/2020, 03/26/2008 Care Teams Board Saw Runner Relationship Specialty Start Date End Date Karen David MD [address] [place] [address] PCP - General Family Practice 11/24/16
--- OUTSIDE RECORDS SUMMARY | 2023-04-05 19:58 | XMS_ITS | Encounter Summary ---
Author Name Unknown Organization [facility] Address [address] [place] [address] Care Team Providers Care Structures Engineer Name Role Phone Unavailable Primary Care Provider Unavailabl e Reason for Visit * Reason Onset Date Comments Appointment 07/13/2022 Encounter Details Date Type Department Care Team (Late st Contact Info) Description 07/13/2022 Clinical Communication Department of Neurology in [address] [phone] Gordo Wolfe M.D., M.P.H. [address] [phone] Appointment Social History Tobacco Use Types Packs/Day Years [...] any clubs o r organizations such as methodist groups, unions, fraternal or athletic groups, or [...] and heating? Not hard at all 08/14/2022 [facility] of Occupat ional Health - Occupational [...] place to sleep or slept in a mcfp (including now)? No 08/14/2022 Nutrition Answer Date [...] encounter Miscellaneous Notes * Telephone Encounter - Mini Vann - 07/13/2022 10:31 AM CDT Patient has been rescheduled documented in this encounter Plan of Treatment Not on file documented as of this encounter Visit Diagnoses Not on filedocumented in this encounter
--- OUTSIDE RECORDS SUMMARY | 2023-04-05 19:58 | XMS_ITS | Encounter Summary ---
Author Name Unknown Organization [facility] Address [address] [place] [address] Care Team Providers Care Throw Out Clerk Name Role Phone Unavailable Primary Care Provider Unavailabl e Reason for Referral * MRI/CAT/PET Scan (Routine) - Closed Specialty Diagnoses / Procedures Referred By Contac t Referred To Contact Radiology Diagnoses Headache Unspecified Headache Mixed Procedures MR Brain without and with IV Contrast MR Brain without IV Contrast [place] MRI BRAIN WO CNTRST HC MRI BRAIN WO CNTRST Gordo Wolfe M.D., M.P.H. [address] [place] [phone] [facility] Referral ID Status Reason Start Date Expiration Date Visits Re quested Visits Authorized [id number] Closed 08/18/2022 08/18/2023 1 1 * Outpatient (Routine) - Closed Specialty Diagnoses / Procedures Referred By Contac t Referred To Contact Diagnoses Headache Mixed Procedures US Temporal Artery Gordo Wolfe M.D., M.P.H. [address] [place] [phone] [facility] Referral ID Status Reason Start Date Expiration Date Visits Re quested Visits Authorized [id number] Closed 08/18/2022 08/18/2023 1 1 * Outpatient (Routine) - Closed Specialty Diagnoses / Procedures Referred By Rich goff Referred To Contact Neurology Gordo Wolfe M.D., M.P.H. [address] [place] [phone] [facility] Region Referral ID Status Reason Start Date Expiration Date Visits Re quested Visits Authorized [id number] Closed 08/18/2022 08/17/2025 1 1 Reason for Visit * Reason Comments [facility] * Outpatient (Routine) - Closed Specialty Diagnoses / Procedures Referred By Rich goff Referred To Contact Neurology Diagnoses Headache Unspecified Headache Mixed Karen David M.D. [address] [place] [phone] [facility] Referral ID Status Reason Start Date Expiration Date Visits Re quested Visits Authorized [id number] Closed 07/12/2022 07/12/2023 1 1 Encounter Details Date Type Department Care Team (Latest Contact Info) Description 08/18/2022 1:00 PM CDT Comprehensive Visit Department of Neurology in [address] [phone] Gordo Wolfe M.D., M.P.H. 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 Never 08/14/2022 Do you belong to any clubs o r organizations such as bahai groups, unions, fraternal or athletic groups, or [...] and heating? Not hard at all 08/14/2022 [facility] [place] of Occupat ional Health - Occupational Stress [...] place to sleep or slept in a residential (including now)? No 08/14/2022 Nutrition Answer Date [...] Sign Reading Time Taken Comments Blood Pressure 146/64 08/18/2022 1:20 PM CDT Pulse 85 08/18/2022 1:20 PM CDT Temperature - - Respiratory Rate - - Oxygen Saturation - - Inhaled Oxygen Concentration - - Weight 43.8 kg (96 lb 9 oz) 08/18/2022 1:20 PM C DT Height - - Body Mass Index - - documented in this encounter Consult Notes * Gordo Wolfe M.D., M.P.H. - 08/18/2022 1:00 PM CDT JOSE RAFAEL Butcher presents today for a right-sided headache that has been ongoing now for several months. She describes this head pain as being localized largely to the right temporal region with some tenderness. I can not elicit any history of visual changes nor jaw claudication. She said lying on the right side is sometimes too painful so she has to lie on her left side. She says the headache can occur anytime of day and if she were to characterize the pain she would say it is stabbing. I previously seen this patient for history of seizures and these were primarily complex partial seizures and this has been well controlled of late. She is had one behavioral arrest seizure this year in two last year.She is quite happy with how that is. She comes in today saying that she is headaches about 40% of the days this year. She requests an MRI of her brain because she is anxious that something is wrong with her head. REVIEW OF SYSTEMS No visits with results within 6 Month(s) from this visit. Latest known visit with results is: Abstract on 04/27/2018 Component Date Value Ref Range Status C-Reactive Protein (CRP), S 12/26/2017 <0.50 Final OBJECTIVE BP 146/64 (BP Location: Left arm, Patient Position: Sitting, Cuff Size: Small) Pulse 85 Wt 43.8kg Physical Exam COGNITION: Alert and oriented x 4. She is rather anxious at the visit. CRANIAL NERVES: chemical operations and training II-XII intact and symmetric. MOTOR: Full strength throughout the upper and lower extremities bilaterally both proximally and distally. Normal tone. No pronator drift. No tremor. REFLEXES: Normal and symmetric at the biceps, triceps, brachioradialis, knees, and ankles. SENSORY: normal sensation to touch CEREBELLAR: ARMs-normal GAIT: Normal She does have some tenderness on the right temporal region and she points to the area just lateral to her eye which is where it is often most painful. At today's visit she says she has about a 4/10 pain. ASSESSMENT / PLAN #1 Headache Unspecified Her headache lateralize the right temporal region which is tender for her to lie on raises concernsabout temporal arteritis I am going to check CRP and ESR. I am going to get an ultrasound of the temporal artery on the right side and an MRI brain which in addition to her request is probably reasonable. I find her examination today however to be normal and nonlocalizing except for the minor righttemporal tenderness. 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 documented in this encounter Plan of Treatment Scheduled Referrals Name Type Priority Associated Diagnoses Orde r Schedule Neurology office visit (clinic) Outpatient Referral Routine Expected: 11/10/2022 (Approximate), Expires: 11/19/2023 documented as of this encounter Procedures Procedure Name Priority Date/Time Associated Diagnosis Comments SEDIMENTATION RATE, B Routine 08/18/2022 2:08 PM CDT Headache Mixed documented in this [...] to suggestvasculitis. IMPRESSION: Negative for vasculitis bilaterally. Gordo Wolfe M.D., M.P.H. IMG US PROCE DURES * MR Brain without and with IV Contrast (08/31/2022 3:48 PM CDT) Anatomical Region Laterality Modality Head, Brain, Neuroradiology RST LOS, Neuroradiology ARZ LOS, Neuroradiology FLA LOS N/A Magnetic Resonance 09/01/2022 8:56 AM CDT Impressions 09/01/2022 9:17 AM CDT -Asymmetric atrophy of the left hippocampus with associated mild increased T2 FLAIR hyperintense signal suggestive of left mesial temporal sclerosis. -No acute intracranial disease. Narrative 09/01/2022 9:17 AM CDT EXAM: MR BRAIN WITHOUT AND WITH IV CONTRAST COMPARISON:MRI brain, 12/28/17. FINDINGS: Asymmetric atrophy of the left hippocampus with associated mild increased T2 FLAIR hyperintense signal. No areas of restricted diffusion to suggest acute infarct. No abnormal parenchymal susceptibility. Nonspecific T2 FLAIR hyperintense white matter lesions in bilateral cerebral subcortical and deep white matter without significant interval change, presumably moderate chronic small vessel disease. Moderate diffuse cerebral volume loss with proportionate dilation of the ventricles and peripheral subarachnoid spaces.. No focal enhancing brain lesions. No extra-axial fluid collection, intracranial mass or midline shift. The basal cisterns are patent. ??Intact intracranial arterial flow voids. Bilateral orbits, paranasal sinuses and mastoid air cells are unremarkable. Procedure Note Esa Mar M.B., Killian Alexander - 09/01/2022 EXAM: MR BRAIN WITHOUT AND WITH IV CONTRAST COMPARISON:MRI brain, 12/28/17. FINDINGS: Asymmetric atrophy of the left hippocampus with associated mild increasedT2 FLAIR hyperintense signal. No areas of restricted diffusion to suggest acute infarct. Noabnormal parenchymal susceptibility. Nonspecific T2 FLAIR hyperintense white matter lesions inbilateral cerebral subcortical and deep white matter without significant interval change,presumably moderate chronic small vessel disease. Moderate diffuse cerebral volume loss withproportionate dilation of the ventricles and peripheral subarachnoid spaces.. No focal enhancing brainlesions. No extra-axial fluid collection, intracranial mass or midline shift. The basal cisternsare patent. Intact intracranial arterial flow voids. Bilateral orbits, paranasal sinuses andmastoid air cells are unremarkable. IMPRESSION: -Asymmetric atrophy of the left hippocampus with associated mild increasedT2 FLAIR hyperintense signal suggestive of left mesial temporal sclerosis. -No acute intracranial disease. Gordo Wolfe M.D., M.P.H. [facility] MRI PROC EDURES * Sedimentation Rate (08/18/2022 2:08 PM CDT) [facility] Sedimentation Rate, B 5 0 - 29 mm/1 h 08/18/2022 8:04 PM CDT [facility] Blood (Blood, Venous) 08/18/2022 2:08 PM CDT 08/18/2022 7:33 PM CDT Gordo Wolfe M.D., M.P.H. LAB BLOOD AD D-ON [facility] [address] [place] [address], [facility] [place] [address] [place] [address] * CRP (C-Reactive Protein) (08/18/2022 2:08 PM CDT) [facility] C-Reactive Protein (CRP), P <3.0 <5.0 mg/L 08/18/2022 4:24 PM CDT [facility] Blood (Blood, Venous) 08/18/2022 2:08 PM CDT 08/18/2022 3:27 PM CDT Gordo Wolfe M.D., M.P.H. LAB BLOOD AD D[facility] [address] [place] [address], 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
--- OUTSIDE RECORDS SUMMARY | 2023-04-05 19:58 | XMS_ITS | Encounter Summary ---
Author Name Unknown Organization [facility] Address [address] [place] [address] Care Team Providers Care C Architect Name Role Phone Unavailable Primary Care Provider Unavailabl e Encounter Details Date Type Department Care Team (Late st Contact Info) Description 08/19/2022 Orders Only Department of Neurology in [place], [place] [address] [place] [address] Gordo Wolfe M.D., M.P.H. [address] [place] [phone] Social History Tobacco Use Types Packs/Day Years [...] often do you attend chur ch or latter-day services? Never 08/14/2022 Do you belong to any clubs o r organizations such as yazdanism groups, unions, fraternal or athletic groups, or [...] and heating? Not hard at all 08/14/2022 [facility] of Occupat ional Health - Occupational Stress [...] place to sleep or slept in a fpc (including now)? No 08/14/2022 Nutrition Answer Date [...]
--- OUTSIDE RECORDS SUMMARY | 2023-04-05 19:58 | XMS_ITS | Encounter Summary ---
Author Name Unknown Organization [facility] Address [address] [place] [address] Care Team Providers Care Elevator Runner Name Role Phone Unavailable Primary Care Provider Unavailabl e Reason for Referral * MRI/CAT/PET Scan (Routine) - Closed Specialty Diagnoses / Procedures Referred By Contac t Referred To Contact Radiology Diagnoses Headache Unspecified Headache Mixed Procedures MR Brain without and with IV Contrast MR Brain without IV Contrast [place] MRI BRAIN WO [facility] [facility] MRI BRAIN WO Gordo Mejia M.D., M.P.H. [address] [place] [phone] [facility] Region Referral ID Status Reason Start Date Expiration Date Visits Re quested Visits Authorized [id number] Closed 08/18/2022 08/18/2023 1 1 Reason for Visit * MRI/CAT/PET Scan (Routine) - Closed Specialty Diagnoses / Procedures Referred By Contac t Referred To Contact Radiology Diagnoses Headache Unspecified Headache Mixed Procedures MR Brain without and with IV Contrast MR Brain without IV Contrast [place] MRI BRAIN WO [facility] [facility] MRI BRAIN WO Gordo Mejia M.D., M.P.H. [address] [place] [phone] [facility] Region Referral ID Status Reason Start Date Expiration Date Visits Re quested Visits Authorized [id number] Closed 08/18/2022 08/18/2023 1 1 Encounter Details Date Type Department Care Team (Latest Contact Info) Description 08/31/2022 2:33 PM CDT - 08/31/2022 11:59 PM CDT Hospital Encounter Department of Radiology in [place], [place] [address] [place] [phone] Gordo Wolfe M.D., M.P.H. [address] [place] [phone] Headache Unspecified; Headache Mixed Discharge Disposition: Home or Self [...] often do you attend chur ch or buddhist services? Never 08/14/2022 Do you belong to any clubs o r organizations such as judaism groups, unions, fraternal or athletic groups, or [...] and heating? Not hard at all 08/14/2022 [facility] Answer Date Recorded [...] place to sleep or slept in a fdc (including now)? No 08/14/2022 Nutrition Answer Date [...] Procedure Name Priority Date/Time Associated Diagnosis Comments MR BRAIN WITHOUT AND WITH IV CONTRAST RAD - Routine (most inpatients and all outpatients) 08/31/2022 3:48 PM CDT Headache Unspecified Headache Mixed documented in this encounter Results * MR Brain without and with IV [...] are unremarkable. Procedure Note Esa Mar M.B., Benjamin, MLaw. - 09/01/2022 EXAM: MR BRAIN WITHOUT AND [...] acute intracranial disease. Gordo Wolfe M.D., M.P.H. [facility] MRI PROC EDURES documented in this encounter Visit Diagnoses Diagnosis Headache Unspecified Headache Mixed documented in this encounter Administered Medications Inactive Administered Medications - up to 3 most recent administrations Medication Order MAR Action Action Date Dose Rate Site gadobutrol injection 0.5-15 mL (GADAVIST) 0.5-15 mL, intravenous, Once in imaging, contrast, Starting on Mon08/31/22 at 1508, For 1 dose, Dose per Radiant Medication Guidelines Intrathecal doses greater than 0.25 mL not recommended. Given 08/31/2022 3:49 PM CDT 4.5 mL sodium chloride 0.9 % injection 10 mL 10 mL, intravenous, As needed, line care, Starting on Mon08/31/22 at 1508 Given 08/31/2022 3:49 PM CDT 10 mL documented in this encounter
--- OUTSIDE RECORDS SUMMARY | 2023-04-05 19:58 | XMS_ITS | Encounter Summary ---
Author Name Unknown Organization [facility] Address [address] [place] [address] Care Team Providers Care Classroom Coordinator Name Role Phone Unavailable Primary Care Provider Unavailabl e Reason for Visit * Reason Onset Date Comments After Visit Question 08/18/2022 Encounter Details Date Type Department Care Team (Latest Contact Info) Description 08/18/2022 Clinical Communication Department of Neurology in [address] [phone] Gordo Wolfe M.D., M.P.H. [address] [place] [phone] After Visit Question Social History Tobacco Use Types Packs/Day Years [...] often do you attend chur ch or mosque services? Never 08/14/2022 Do you belong to any clubs o r organizations such as temple groups, unions, fraternal or athletic groups, or [...] and heating? Not hard at all 08/14/2022 [facility] of Occupat ional Health - Occupational [...] Miscellaneous Notes * Telephone Encounter - Breonna Rowe, L.P.N. - 08/25/2022 10:01 AM CDT SUBJECTIVE CHIEF COMPLAINT / REASON FOR CALL After Visit Question PLAN The following information was provided: Patient notified that medication Xanax has been ordered to take 30 minutes prior to MRI. Information/Education: patient/caller able to teach back The following references were used: provider Dr. Wolfe * Telephone Encounter - Aamir Mtz - 08/18/2022 2:08 PM CDT Patient is scheduled for a MRI of the Brain on August 31. Patient states that she is claustrophobic,and would like a script for the MRI. If there are any questions, please reach out to the patient. Script can be sent thorough [facility] scripts. Thank you documented in this encounter Plan of Treatment Not on file documented as of this encounter Visit Diagnoses Not on filedocumented in this encounter
--- OUTSIDE RECORDS SUMMARY | 2023-04-05 19:58 | XMS_ITS | Encounter Summary ---
Author Name Unknown Organization [facility] Address [address] [place] [address] Care Team Providers Care Proposition Player Name Role Phone Unavailable Primary Care Provider Unavailabl e Encounter Details Date Type Department Care Team (Latest Contact Info) Description 08/18/2022 2:01 PM CDT - 08/18/2022 11:59 PM CDT Hospital Encounter Department of Laboratory Medicine in [place] [address] [place] [address] Gordo Wolfe M.D., M.P.H. [address] [phone] Headache Mixed Discharge Disposition: Home or Self [...] often do you attend chur ch or hoahaoism services? Never 08/14/2022 Do you belong to any clubs o r organizations such as yarsanism groups, unions, fraternal or athletic groups, or [...] and heating? Not hard at all 08/14/2022 [facility] of Occupat ional Health - Occupational Stress [...] place to sleep or slept in a prison (including now)? No 08/14/2022 Nutrition Answer Date [...] TABLETS DAILY 180 tablet 3 03/08/2022 11/15/2022 ascorbic acid, vitamin C, (vitamin C) 1,000 [...] Procedure Name Priority Date/Time Associated Diagnosis Comments C-REACTIVE PROTEIN (CRP), S/P Routine 08/18/2022 2:08 PM CDT Headache Mixed documented in this encounter Results * CRP (C-Reactive Protein) (08/18/2022 2:08 PM CDT) C-Reactive Protein (CRP), P <3.0 <5.0 mg/L 08/18/2022 4:24 PM CDT [facility] Blood (Blood, Venous) 08/18/2022 2:08 PM CDT 08/18/2022 3:27 PM CDT Gordo Wolfe M.D., M.P.H. LAB BLOOD AD D-ON [facility] [address] [place] [address], [facility] [place] [address] [place] [address] documented in this encounter Visit Diagnoses Diagnosis Headache Mixed documented in this encounter
== END 2023-03-30 09:31 | disposition home or self-care (01) ==
LOC: NFLDREF 04-05 19:55
PROVIDERS: PCP Family Medicine; Referring Provider Family Medicine; Visit Provider Family Medicine
DX: R53.83 Other fatigue (principal); E78.5 Hyperlipidemia, unspecified; M85.80 Other specified disorders of bone density and structure, unspecified site; Z79.1 Long term (current) use of non-steroidal anti-inflammatories (NSAID)
CPT/HCPCS: 80053; 80061; 82306; 82607

== ENCOUNTER 2023-04-20 12:44 | Outpatient (CLI) | payer MEDICARE, SELFPAY ==
--- NOTE | 2023-04-20 13:00 | CRLHL7_ITS ---
For Patients: As a result of the Century Cures Act, medical imaging exams and procedure reports are released immediately into your electronic medical record. You may view this report before your referring provider. If you have questions, please contact your health care provider. INDICATION: Back and pelvic pain. COMPARISON: Plain films 30 November 2022. TECHNIQUE: Axial T1 and STIR, coronal T1 and STIR and sagittal T1 and STIR bony pelvis. No contrast. FINDINGS: Suggestion of dextroscoliosis centered above the [id number]. Mild disc desiccation and height loss. Normal sacroiliac joints. No sacral mass or fracture. No pelvic fracture or mass. Anatomic Sami lined hips. Physiologic fluid. No significant degenerative or inflammatory change appreciated in either hip. Intact hamstrings. Gluteal tendons insert normally. No fluid in the bursa. Muscle bulk and signal normal through the [id number]-ih-[id number]. Upper normal dependent peritoneal fluid. Absent uterus. No mass. No adenopathy. IMPRESSION: No significant finding to account for pain. Dictated by Kody Goodman MD @ 04/21/2023 11:53:53 AM (Electronically Signed)
--- OUTSIDE RECORDS SUMMARY | 2023-04-20 13:08 | XMS_ITS | Clinical Summary ---
Author Name Unknown Organization [facility] Address [address] [place] [address] Care Team Providers Care Clinical Safety Manager Name Role Phone Unavailable Primary Care Provider Unavailabl e Source Comments Patient records contain information from all sites at [facility]. For routine questions regarding patient records, call [phone] during business hours, M-F 8:00 AM - 5:00 PM Central Time. Record requests for emergency care only can be directed to [phone] at any time.[facility] Allergies Active Allergy Reactions Criticality Noted [...] 04/04/2023 Clinical Communication Department of Neurology in [place], [place] [address] [place] [phone] Kody Cruz M.D. 03/31/2023 Clinical Communication Department of Neurology in [place], [place] [address] [place] [phone] Kody Cruz M.D. from Last 3 Months [...] often do you attend chur ch or religion services? Never 08/14/2022 Do you belong to [...] and heating? Not hard at all 08/14/2022 [facility] of Occupat ional Health - Occupational Stress [...] place to sleep or slept in a mcc (including now)? No 08/14/2022 Nutrition Answer Date [...] Mass Index - - Plan of Treatment Upcoming Encounters Date Type Department Care Team (Late st Contact Info) Description 06/21/2023 11:00 AM CDT Comprehensive Visit Department of Neurology in [place], [place] [address] [phone] Kody Cruz M.D. [address] [phone] Health Maintenance Due Date Last Done Comments [...]
--- OUTSIDE RECORDS SUMMARY | 2023-04-20 13:09 | XMS_ITS | Encounter Summary ---
Author Name Unknown Organization [facility] Address [address] [place] [address] Care Team Providers Care Operating System Programmer Name Role Phone Unavailable Primary Care Provider Unavailabl e Reason for Referral * MRI/CAT/PET Scan (Routine) - Closed Specialty Diagnoses / Procedures Referred By Contac t Referred To Contact Radiology Diagnoses Headache Unspecified Headache Mixed Procedures MR Brain without and with IV Contrast MR Brain without IV Contrast MI MRI BRAIN WO CNTRST HC MRI BRAIN WO CNTRST Gordo Wolfe M.D., M.P.H. [address] [place] [phone] [facility] Referral ID Status Reason Start Date Expiration Date Visits Re quested Visits Authorized [id number] Closed 08/18/2022 08/18/2023 1 1 * Outpatient (Routine) - Closed Specialty Diagnoses / Procedures Referred By Contac t Referred To Contact Diagnoses Headache Mixed Procedures US Temporal Artery Gordo Wolfe M.D., M.P.H. [address] [place] [phone] [facility] Referral ID Status Reason Start Date Expiration Date Visits Re quested Visits Authorized [id number] Closed 08/18/2022 08/18/2023 1 1 * Outpatient (Routine) - Closed Specialty Diagnoses / Procedures Referred By Rich goff Referred To Contact Neurology Gordo Wolfe M.D., M.P.H. [address] [place] [phone] [facility] Region Referral ID Status Reason Start Date Expiration Date Visits Re quested Visits Authorized [id number] Closed 08/18/2022 08/17/2025 1 1 Reason for Visit * Reason Comments [facility] * Outpatient (Routine) - Closed Specialty Diagnoses / Procedures Referred By Rich goff Referred To Contact Neurology Diagnoses Headache Unspecified Headache Mixed Karen David M.D. [address] [place] [phone] [facility] Referral ID Status Reason Start Date Expiration Date Visits Re quested Visits Authorized [id number] Closed 07/12/2022 07/12/2023 1 1 Encounter Details Date Type Department Care Team (Latest Contact Info) Description 08/18/2022 1:00 PM CDT Comprehensive Visit Department of Neurology in [address] [phone] Gordo Wolfe M.D., M.P.H. [address] [place] [phone] Headache Mixed (Primary Dx); Headache Unspecified; [...] How often do you attend chur or voodoo services? Never 08/14/2022 Do you belong to any clubs o r organizations such as rastafarian groups, unions, fraternal or athletic groups, or [...] heating? Not hard at all 08/14/2022 [facility] [place] of Occupat ional Health - Occupational Stress [...] place to sleep or slept in a intermediate (including now)? No 08/14/2022 Nutrition Answer Date [...] rather anxious at the visit. CRANIAL NERVES: leaf sticker II-XII intact and symmetric. MOTOR: Full strength [...] documented in this encounter Plan of Treatment Upcoming Encounters Date Type Department Care Team (Late st Contact Info) Description 06/21/2023 11:00 AM CDT Comprehensive Visit Department of Neurology in [place], [place] [address], [place] [phone] Kody Cruz M.D. [address] [place] [phone] Scheduled Referrals Name Type Priority Associated Diagnoses [...] acute intracranial disease. Gordo Wolfe M.D., M.P.H. [facility] MRI PROC EDURES * Sedimentation Rate (08/18/2022 2:08 PM CDT) Sedimentation Rate, B 5 0 - 29 mm/1 h 08/18/2022 8:04 PM CDT MKTO Blood (Blood, Venous) 08/18/2022 2:08 PM CDT 08/18/2022 7:33 PM CDT Gordo Wolfe M.D., M.P.H. LAB BLOOD AD D-ON Performing Organization Address City/[facility]/ZIP Co de Phone Number [facility] [address] [place] [address], [facility] MKTO [facility] [place] [address] [place] [address] * CRP (C-Reactive Protein) (08/18/2022 2:08 PM CDT) C-Reactive Protein (CRP), P <3.0 <5.0 mg/L 08/18/2022 4:24 PM CDT OW Blood (Blood, Venous) 08/18/2022 2:08 PM CDT 08/18/2022 3:27 PM CDT Gordo Wolfe M.D., M.P.H. 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
--- OUTSIDE RECORDS SUMMARY | 2023-04-20 13:09 | XMS_ITS | Referral Summary ---
Author Name Unknown Organization [facility] Address [address] [place] [address] Care Team Providers Care Penetration Tester Name Role Phone Unavailable Primary Care Provider Unavailabl e Source Comments Patient records contain information from all sites at [facility]. For routine questions regarding patient records, call [phone] during business hours, M-F 8:00 AM - 5:00 PM Central Time. Record requests for emergency care only can be directed to [phone] at any time.[facility] Encounters Date Type Department Care Team Description 04/04/2023 Clinical Communication Department of Neurology in [place], [place] [address] [place] [address] Kody Cruz M.D. 03/31/2023 Clinical Communication Department of Neurology in [place], [place] [address] [place] [phone] Kody Cruz M.D. from Last 3 Months [...] How often do you attend chur or sikh services? Never 08/14/2022 Do you belong to any clubs o r organizations such as confucianism groups, unions, fraternal or athletic groups, or [...] and heating? Not hard at all 08/14/2022 [facility] [place] of Occupat ional Health - Occupational Stress [...] CDT Comprehensive Visit Department of Neurology in [place], [place] [address] [phone] Kody Cruz M.D. [address] [place] [phone]
--- OUTSIDE RECORDS SUMMARY | 2023-04-20 13:09 | XMS_ITS ---
Author Name Unknown Organization [facility] Address [address] [place] [address] Care Team Providers Care Group President Name Role Phone Unavailable Unavailable Unavailable Surgery Details Not on file Complications Check Surgery Details section. Procedure Estimated Blood Loss Check Surgery Details section. Procedure Findings Check Surgery Details section. Procedure Specimens Taken Check Surgery Details section.
--- OUTSIDE RECORDS SUMMARY | 2023-04-20 13:09 | XMS_ITS | Encounter Summary ---
Author Name Unknown Organization [facility] Address [address] [place] [address] Care Team Providers Care Corporate Travel Coordinator Name Role Phone Unavailable Primary Care Provider Unavailabl e Reason for Visit * Reason Comments Migraine Seizures Follow up * Outpatient (Routine) - Closed Specialty Diagnoses / Procedures Referred By Rich goff Referred To Contact Neurology Gordo Wolfe M.D., M.P.H. [address] [place] [phone] [facility] Region Referral ID Status Reason Start Date Expiration Date Visits Re quested Visits Authorized [id number] Closed 08/18/2022 08/17/2025 1 1 Encounter Details Date Type Department Care Team (Latest Contact Info) Description 11/15/2022 1:00 PM CDT Comprehensive Visit Department of Sleep Medicine in [place] [address] [place] [address] Gordo Wolfe M.D., M.P.H. [address] [phone] Localization Related Focal Partial Idiopathic [...] week 08/14/2022 How often do you attend [facility] or congregational services? Never 08/14/2022 Do you belong to any clubs o r organizations such as congregational groups, unions, fraternal or athletic groups, or [...] and heating? Not hard at all 08/14/2022 [facility] [place] of Occupat ional Health - Occupational Stress [...] place to sleep or slept in a half-way (including now)? No 08/14/2022 Nutrition Answer Date [...] my help some many years ago at [facility]. She has headaches previously described in my [...] tablet by mouth daily., Disp: , Rfl: [id number] C-Mn (GLUCOSAMINE-CHONDROITIN COMPLX) per capsule, Take 1 [...] Alert and oriented x 4. CRANIAL NERVES: solderer assembly repair II-XII intact and symmetric. GAIT: Normal I [...] CDT Comprehensive Visit Department of Neurology in [place], [place] [address] [phone] Kody Cruz M.D. 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
--- OUTSIDE RECORDS SUMMARY | 2023-04-20 13:09 | XMS_ITS | Encounter Summary ---
Author Name Unknown Organization [facility] Address [address] [place] [address] Care Team Providers Care Stenographic Court Reporter Name Role Phone Unavailable Primary Care Provider Unavailabl e Reason for Visit * Reason Comments Med Refill Encounter Details Date Type Department Care Team (Late st Contact Info) Description 11/16/2022 Refill Department of Sleep Medicine in [place], [place] [address] [place] [address] Gordo Wolfe M.D., M.P.H. [address], [place] [phone] Med Refill Social History Tobacco Use Types [...] often do you attend chur ch or adventist services? Never 08/14/2022 Do you belong to any clubs o r organizations such as zoroastrianism groups, unions, fraternal or athletic groups, or [...] and heating? Not hard at all 08/14/2022 [facility] of Occupat ional Health - Occupational Stress [...] Patient plans on having primary doctor in [place] refill Lorazepam . * Telephone Encounter - Breonna Rowe L.P.N. - 11/29/2022 4:28 PM CDT Patient has appt. With primary provider in [place] tomorrow 11/30/22 and will discuss Lorazepam refill at that time. * Telephone Encounter - Breonna Rowe L.P.N. - 11/22/2022 2:32 PM CDT Spoke to Pharmacist - Meme. Unable to fill Lorazepam - (controlled drug ) under [facility] listed for [place]. Attempted to contact patient. Will need to have primary MD refill medication. Patient has enough medication through 12/24/22. * Telephone Encounter - Sherry Ramon L.P.N. - 11/21/2022 11:22 AM CDT Patient's PCP is not within [facility]. Please advise. Thank you. * Telephone Encounter [...] CDT Comprehensive Visit Department of Neurology in [place], [place] [address], [place] [address] Kody Cruz M.D. [address] [place] [phone] documented as of this encounter Visit Diagnoses Not on filedocumented in this encounter
--- OUTSIDE RECORDS SUMMARY | 2023-04-20 13:09 | XMS_ITS | Encounter Summary ---
Author Name Unknown Organization [facility] Address [address] [place] [address] Care Team Providers Care Postage Machine Operator Name Role Phone Unavailable Primary Care Provider Unavailabl e Reason for Visit * Reason Onset Date Comments Appointment 07/13/2022 Encounter Details Date Type Department Care Team (Late st Contact Info) Description 07/13/2022 Clinical Communication Department of Neurology in [address] [phone] Gordo Wolfe M.D., M.P.H. [address] [phone] Appointment Social History Tobacco Use Types Packs/Day [...] often do you attend chur ch or mandaen services? Never 08/14/2022 Do you belong to any clubs o r organizations such as latter-day groups, unions, fraternal or athletic groups, or [...] and heating? Not hard at all 08/14/2022 [facility] [place] of Occupat ional Health - Occupational Stress [...] place to sleep or slept in a snf (including now)? No 08/14/2022 Nutrition Answer Date [...] CDT Comprehensive Visit Department of Neurology in [place], [place] [address] [place] [phone] Kody Cruz M.D. [address] [place] [phone] documented as of this encounter Visit Diagnoses Not on filedocumented in this encounter
--- OUTSIDE RECORDS SUMMARY | 2023-04-20 13:09 | XMS_ITS | Encounter Summary ---
Author Name Unknown Organization [facility] Address [address] [place] [address] Care Team Providers Care Moshgiach Name Role Phone Unavailable Primary Care Provider Unavailabl e Reason for Referral * Outpatient (Routine) - Closed Specialty Diagnoses / Procedures Referred By Contac t Referred To Contact Diagnoses Headache Mixed Procedures US Temporal Artery Gordo Wolfe M.D., M.P.H. [address] [phone] [facility] Referral ID Status Reason Start Date Expiration Date Visits Re quested Visits Authorized [id number] Closed 08/18/2022 08/18/2023 1 1 Reason for Visit * Outpatient (Routine) - Closed Specialty Diagnoses / Procedures Referred By Contac t Referred To Contact Diagnoses Headache Mixed Procedures US Temporal Artery Gordo Wolfe M.D., M.P.H. [address] [phone] [facility] Referral ID Status Reason Start Date Expiration Date Visits Re quested Visits Authorized [id number] Closed 08/18/2022 08/18/2023 1 1 Encounter Details Date Type Department Care Team (Latest Contact Info) Description 09/26/2022 1:00 PM CDT - 09/26/2022 11:59 PM CDT Hospital Encounter Department of Radiology, [facility], in [place], [place] [address] [place] [address] Gordo Wolfe M.D., M.P.H. [address] [place] [phone] Headache Mixed Discharge Disposition: Home or Self [...] often do you attend chur ch or jewish services? Never 08/14/2022 Do you belong to any clubs o r organizations such as alevism groups, unions, fraternal or athletic groups, or [...] and heating? Not hard at all 08/14/2022 [facility] [place] of Occupat ional Health - Occupational Stress [...] place to sleep or slept in a custodial (including now)? No 08/14/2022 Nutrition Answer Date [...] 99 mg take one daily 0 01/05/2022 ALPRAZolam (XANAX) 0.5 mg tablet Take 1-2 [...] (PEPCID) 20 mg tablet 0 07/31/2020 11/15/2022 lamoTRIgine (LaMICtaL) 100 mg tablet TAKE 1 TABLET TWICE A DAY 180 tablet 3 03/08/2022 11/15/2022 lamoTRIgine (LaMICtaL) 25 mg tablet TAKE 2 TABLETS DAILY 180 tablet 3 03/08/2022 11/15/2022 LORazepam (ATIVAN) 0.5 mg tablet Take [...] as of this encounter Plan of Treatment Upcoming Encounters Date Type Department Care Team (Late st Contact Info) Description 06/21/2023 11:00 AM CDT Comprehensive Visit Department of Neurology in [place], [place] [address] [place] [address] Kody Cruz M.D. [address] [place] [phone] documented as of this encounter Procedures Procedure [...] bilaterally. Gordo Wolfe M.D., M.P.H. [facility] documented in this encounter Visit Diagnoses Diagnosis Headache Mixed documented in this encounter
--- OUTSIDE RECORDS SUMMARY | 2023-04-20 13:09 | XMS_ITS | Encounter Summary ---
Author Name Unknown Organization [facility] Address [address] [place] [address] Care Team Providers Care Quantitative Research Analyst Name Role Phone Unavailable Primary Care Provider Unavailabl e Encounter Details Date Type Department Care Team (Late st Contact Info) Description 04/04/2023 Clinical Communication Department of Neurology in [place], [place] [address] [place] [address] Kody Cruz M.D. [address] [place] [phone] Social History Tobacco Use Types Packs/Day Years [...] often do you attend chur ch or worship services? Never 08/14/2022 Do you belong to [...] and heating? Not hard at all 08/14/2022 [facility] of Occupat ional Health - Occupational [...] place to sleep or slept in a penitentiary (including now)? No 08/14/2022 Nutrition Answer Date [...] CDT Comprehensive Visit Department of Neurology in [place], [place] [address] [phone] Kody Cruz M.D. [address], [place] [address] documented as of this encounter Visit Diagnoses Not on filedocumented in this encounter
--- OUTSIDE RECORDS SUMMARY | 2023-04-20 13:09 | XMS_ITS | Encounter Summary ---
Author Name Unknown Organization [facility] Address [address] [place] [address] Care Team Providers Care Body Artist Name Role Phone Unavailable Primary Care Provider Unavailabl e Reason for Referral * MRI/CAT/PET Scan (Routine) - Closed Specialty Diagnoses / Procedures Referred By Contac t Referred To Contact Radiology Diagnoses Headache Unspecified Headache Mixed Procedures MR Brain without and with IV Contrast MR Brain without IV Contrast ID MRI BRAIN WO KALEIGHRST HC MRI BRAIN WO Gordo Mejia M.D., M.P.H. [address] [place] [phone] [facility] Region Referral ID Status Reason Start Date Expiration Date Visits Re quested Visits Authorized [id number] Closed 08/18/2022 08/18/2023 1 1 Reason for Visit * MRI/CAT/PET Scan (Routine) - Closed Specialty Diagnoses / Procedures Referred By Contac t Referred To Contact Radiology Diagnoses Headache Unspecified Headache Mixed Procedures MR Brain without and with IV Contrast MR Brain without IV Contrast ID MRI BRAIN WO KALEIGHRST HC MRI BRAIN WO Gordo Mejia M.D., M.P.H. [address] [place] [phone] [facility] Region Referral ID Status Reason Start Date Expiration Date Visits Re quested Visits Authorized [id number] Closed 08/18/2022 08/18/2023 1 1 Encounter Details Date Type Department Care Team (Latest Contact Info) Description 08/31/2022 2:33 PM CDT - 08/31/2022 11:59 PM CDT Hospital Encounter Department of Radiology in [place], [place] [address] [place] [address] Gordo Wolfe M.D., M.P.H. [address] [place] [phone] Headache Unspecified; Headache Mixed Discharge Disposition: Home [...] often do you attend chur ch or church services? Never 08/14/2022 Do you belong to [...] and heating? Not hard at all 08/14/2022 [facility] Questionnaire Answer Date Recorded [...] place to sleep or slept in a senior care (including now)? No 08/14/2022 Nutrition Answer Date [...] CDT Comprehensive Visit Department of Neurology in [place], [place] [address] [place] [phone] Kody Cruz M.D. [address] [place] [address] documented as of this encounter Procedures [...] mastoid air cells are unremarkable. Procedure Note Tsetse, Esa M, M.B., Mae Alexander. - 09/01/2022 EXAM: MR BRAIN WITHOUT AND [...] acute intracranial disease. Gordo Wolfe M.D., M.P.H. [facility] MRI PROC EDURES documented in this encounter [...]
--- OUTSIDE RECORDS SUMMARY | 2023-04-20 13:09 | XMS_ITS | Encounter Summary ---
Author Name Unknown Organization [facility] Address [address] [place] [address] Care Team Providers Care Trade Specialist Name Role Phone Unavailable Primary Care Provider Unavailabl e Encounter Details Date Type Department Care Team (Latest Contact Info) Description 08/18/2022 2:01 PM CDT - 08/18/2022 11:59 PM CDT Hospital Encounter Department of Laboratory Medicine in [place] [address] [place] [address] Gordo Wolfe M.D., M.P.H. [address] [phone] Headache Mixed Discharge Disposition: Home or Self [...] often do you attend chur ch or advent services? Never 08/14/2022 Do you belong to [...] and heating? Not hard at all 08/14/2022 [facility] [place] of Occupat ional Health - Occupational Stress [...] 99 mg take one daily 0 01/05/2022 ascorbic acid, vitamin C, (vitamin C) 1,000 [...] CDT Comprehensive Visit Department of Neurology in [place], [place] [address], [place] [address] Kody Cruz M.D. [address] [place] [phone] documented as of this encounter Procedures Procedure [...] Wolfe M.D., M.P.H. LAB BLOOD AD D-ON [facility] [address] [place] [address], [place] OWAT [facility] in [place] [address] [place] [address] documented in this encounter Visit Diagnoses Diagnosis Headache Mixed documented in this encounter
--- OUTSIDE RECORDS SUMMARY | 2023-04-20 13:09 | XMS_ITS | Encounter Summary ---
Author Name Unknown Organization [facility] Address [address] [place] [address] Care Team Providers Care Dehairer Name Role Phone Unavailable Primary Care Provider Unavailabl e Encounter Details Date Type Department Care Team (Late st Contact Info) Description 08/19/2022 Orders Only Department of Neurology in [place], [place] [address] [place] [address] Gordo Wolfe M.D., M.P.H. [address] [place] [phone] Social History Tobacco Use Types Packs/Day Years [...] any clubs o r organizations such as adventism groups, unions, fraternal or athletic groups, or [...] and heating? Not hard at all 08/14/2022 [facility] of Occupat ional Health - Occupational [...] CDT Comprehensive Visit Department of Neurology in [place], [place] [address], [place] [address] Kody Cruz M.D. [address] [place] [address] documented as of this encounter Visit Diagnoses Not on filedocumented in this encounter
--- OUTSIDE RECORDS SUMMARY | 2023-04-20 13:09 | XMS_ITS | Encounter Summary ---
Author Name Unknown Organization [facility] Address [address] [place] [address] Care Team Providers Care Scribing Machine Operator Name Role Phone Unavailable Primary Care Provider Unavailabl e Reason for Visit * Reason Onset Date Comments After Visit Question 08/18/2022 Encounter Details Date Type Department Care Team (Latest Contact Info) Description 08/18/2022 Clinical Communication Department of Neurology in [address] [phone] Gordo Wolfe M.D., M.P.H. [address] [place] [phone] After Visit Question Social History Tobacco Use [...] often do you attend chur ch or sikh services? Never 08/14/2022 Do you belong to any clubs o r organizations such as sabianism groups, unions, fraternal or athletic groups, or [...] and heating? Not hard at all 08/14/2022 [facility] of Occupat ional Health - Occupational Stress [...] CDT Comprehensive Visit Department of Neurology in [place], [place] [address] [phone] Kody Cruz M.D. [address], [place] [address] documented as of this encounter Visit Diagnoses Not on filedocumented in this encounter
--- OUTSIDE RECORDS SUMMARY | 2023-04-20 13:09 | XMS_ITS | Encounter Summary ---
Author Name Unknown Organization [facility] Address [address] [place] [address] Care Team Providers Care Traction Power Engineer Name Role Phone Unavailable Primary Care Provider Unavailabl e Encounter Details Date Type Department Care Team (Late st Contact Info) Description 03/31/2023 Clinical Communication Department of Neurology in [place], [place] [address] [phone] Kody Cruz M.D. [address] [phone] Social History Tobacco Use Types Packs/Day Years [...] often do you attend chur ch or orthodox services? Never 08/14/2022 Do you belong to [...] and heating? Not hard at all 08/14/2022 [facility] of Occupat ional Health - [...] to sleep or slept in a senior living (including now)? No 08/14/2022 Nutrition Answer Date [...] Notes * Telephone Encounter - Breonna Rowe L.PLanaN. - 04/11/2023 9:46 AM RECOVERY SPECIALIST Patient is scheduled 06/21/[address] Cruz. VERY SPECIALIST * Telephone Encounter - Breonna Rowe L.PLanaN. - 03/31/2023 3:57 PM RECOVERY SPECIALIST Patient notified of status of refill. Attempted to schedule patient with Dr. Cruz but was told that there has to be an order. Patient informed that Dr. Cruz is out and once order has been placed will be notified. VERY SPECIALIST documented in this encounter Plan of Treatment Upcoming Encounters Date Type Department Care Team (Late st Contact Info) Description 06/21/2023 11:00 AM CDT Comprehensive Visit Department of Neurology in [place], [place] [address] [phone] Kody Cruz M.D. [address], [place] [phone] documented as of this encounter Visit Diagnoses Not on filedocumented in this encounter
--- OUTSIDE RECORDS SUMMARY | 2023-04-20 13:09 | XMS_ITS | Encounter Summary ---
Author Name Unknown Organization [facility] Address [address] [place] [address] Care Team Providers Care Distributed Energy Systems Consultant Name Role Phone Unavailable Primary Care Provider Unavailabl e Reason for Referral * Outpatient (Routine) - Closed Specialty Diagnoses / Procedures Referred By Rich goff Referred To Contact Neurology Diagnoses Headache Unspecified Headache Mixed Karen David M.D. [address] [place] [phone] [facility] Region Referral ID Status Reason Start Date Expiration Date Visits Re quested Visits Authorized [id number] Closed 07/12/2022 07/12/2023 1 1 Encounter Details Date Type Department Care Team (Late st Contact Info) Description 07/12/2022 [facility] [address] [place] [address] Karen David M.D. [address] [place] [phone] Headache Unspecified (Primary Dx); Headache Mixed Social [...] Never 04/02/2021 How often do you attend oriental orthodox or catholic serv ices? Never 04/02/2021 Do you belong to any clubs o r organizations such as oriental orthodox groups, unions, fraternal or athletic groups, [...] and heating? Not hard at all 04/02/2021 [facility] [place] of Occupat ional Health - Occupational Stress [...] place to sleep or slept in a nursing home (including now)? No 04/02/2021 Nutrition Answer Date [...] CDT Comprehensive Visit Department of Neurology in [place], [place] [address] [place] [phone] Kody Cruz M.D. [address] [place] [phone] Scheduled Referrals Name Type Priority Associated Diagnoses Orde r Schedule Neurology Referral Outpatient Referral Routine Headache Unspecified Headache Mixed Expected: 07/12/2022 (Approximate), Expires: 10/12/2023 documented as of this encounter Visit Diagnoses Diagnosis Headache Unspecified- Primary Headache Mixed documented in this encounter
--- OUTSIDE RECORDS SUMMARY | 2023-04-20 13:10 | XMS_ITS | Clinical Summary ---
Author Name Unknown Organization [facility] Address [place], [place] [address] Care Team Providers Care Outdoor Studies Professor Name Role Phone Karen David MD Primary [...] 50+ Completed 02/02/2021, 12/04/2020, 03/26/2008 Care Teams Outdoor Studies Professor Relationship Specialty Start Date End Date Karen David MD [address] [place] [address] PCP - General Family Practice 11/24/16
--- NOTE | 2023-04-20 13:45 | CRLHL7_ITS ---
For Patients: As a result of the Century Cures Act, medical imaging exams and procedure reports are released immediately into your electronic medical record. You may view this report before your referring provider. If you have questions, please contact your health care provider. INDICATION: Low back pain. COMPARISON: 04/06/2023. August 04. Technique Sagittal T1, T2, and STIR sequences. Axial T1 and T2 weighted sequences. FINDINGS: Lumbar curve convex to the right. In sagittal plane, degenerative grade 1 anterolisthesis of L4 on L5 measures approximately 5 mm and L5 on S1 measures approximately 7 mm. No fractures. No vertebral body loss of height. No ligamentous injury. No suspicious osseous lesions. Normal conus terminates at L2. T12-L1 L1-2 L2-3: No spinal canal or neural foraminal narrowing. L3-4: Disc degeneration. Posterior disc bulge. No narrowing of the spinal canal. No neural foraminal narrowing. Mild facet arthropathy. L4-5: Grade 1 anterolisthesis. Disc degeneration and unroofed posterior disc bulge. Mild narrowing of spinal canal. Oblique orientation of the bilateral foramina with mild narrowing. Moderate facet arthropathy. Bilateral facet joint effusions. L5-S1: Grade 1 anterolisthesis. Disc degeneration and unroofed posterior disc bulge. No narrowing of the spinal canal. No impingement of the traversing S1 nerve roots. Oblique orientation of bilateral foramina with no narrowing. Moderate facet arthropathy. Degenerative changes of the SI joints. Normal paraspinal soft tissues. IMPRESSION: 1. Stable lumbar curve convex to the right. 2. Degenerative grade 1 anterolisthesis of L4 on L5 and L5 on S1. 3. Otherwise, normal alignment. No fractures 4. Lumbar spondylosis. 5. At L4-5, grade 1 anterolisthesis. Mild narrowing of spinal canal. Mild narrowing of the bilateral foramina 6. At L5-S1, grade 1 anterolisthesis. Posterior disc bulge. No narrowing of the spinal canal. No neural foraminal narrowing. Dictated by Cory Gallardo MD @ 04/21/2023 10:24:46 AM (Electronically Signed)
== END 2023-04-20 12:45 | disposition home or self-care (01) ==
LOC: MRI 12:45
PROVIDERS: PCP Family Medicine; Visit Provider Family Medicine
DX: R10.2 Pelvic and perineal pain (principal); M54.50 Low back pain, unspecified; M43.06 Spondylolysis, lumbar region; M51.26 Other intervertebral disc displacement, lumbar region; M51.27 Other intervertebral disc displacement, lumbosacral region
CPT/HCPCS: 72148; 72195

== ENCOUNTER 2023-06-27 09:27 | Outpatient (CLI) | payer MEDICARE, SELFPAY | END 2023-06-27 09:28 | disposition home or self-care (01) | LOC: INJ CL 09:28 | PROVIDERS: PCP Family Medicine; Visit Provider Family Medicine | DX: M47.816 Spondylosis without myelopathy or radiculopathy, lumbar region (principal) | CPT/HCPCS: 64493; J0702; Q9966 ==

== ENCOUNTER 2023-07-11 11:29 | Outpatient (CLI) | payer MEDICARE, SELFPAY ==
--- OUTSIDE RECORDS SUMMARY | 2023-07-20 12:34 | XMS_ITS | Referral Summary ---
Author Name Unknown Organization [facility] Address [address] [place] [address] Care Team Providers Care Auto Hiker Name Role Phone Unavailable Primary Care Provider Unavailabl e Source Comments Patient records contain information from all sites at [facility]. For routine questions regarding patient records, call [phone] during business hours, M-F 8:00 AM - 5:00 PM Central Time. Record requests for emergency care only can be directed to [phone] at any time.[facility] Encounters Date Type Department Care Team Description 06/21/2023 11:00 AM CDT Comprehensive Visit Department of Neurology in [place], [place] [address] [place] [phone] Kody Cruz M.D. 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 from Last 3 Months [...] tablet Take 1 tablet by mouth daily. 10/28/2016 Active dicyclomine (BENTYL) 10 mg capsule Take 1 capsule by mouth 2 (two) times a day. 10/28/2016 Active estradiol (ESTRACE) 0.5 mg tablet Take 1 tablet by mouth daily. 10/28/2016 Active glucosamine-silvano droit-vit C-Mn (GLUCOSAMINE-CHO NDROITIN COMPLX) per capsule Take 1 capsule by mouth 3 (three) times a day. 10/28/2016 Active multivitamin tablet Take 1 tablet by mouth daily. 10/28/2016 Active polyvinyl alcohol-povidone , PF, (REFRESH CLASSIC, PF,) 1.4-0.6 % ophthalmic solution 1-2 drops 4 (four) times a day as needed. 10/28/2016 Active acetaminophen (TYLENOL) 500 mg tablet Take 1 tablet by mouth every 4 (four) hours as needed. 10/28/2016 Active dilTIAZem (TIAZAC/TAZTIA XT) 180 mg ER capsule Take 180 mg by mouth daily. 07/05/2021 Active omeprazole (PriLOSEC) [address] capsule Take 1 capsule by mouth daily. 02/10/2021 Active cholecalciferol (VITAMIN D3) 25 mcg (1,000 Unit) capsule 1,000 Units daily. Active ketorolac (ACULAR) 0.4 % ophthalmic solution Administer 1 drop into affected eye(s) daily as needed. 12/22/2020 Active POTASSIUM CHLORIDE ORAL Take 99 tablets by mouth daily. Potassium Gluconate 99 mg take one daily 01/05/2022 Active lamoTRIgine (LaMICtaL) 25 mg tablet Take 2 tablets (50 mg total) by mouth daily. 180 tablet 3 06/21/2023 Active lamoTRIgine (LaMICtaL) 100 mg tablet Take 1 tablet (100 mg total) by mouth 2 (two) times a day. 180 tablet 3 06/21/2023 Active LORazepam (ATIVAN) 0.5 mg tablet Take 1 tablet (0.5 mg total) by mouth 2 (two) times a day. 120 tablet 2 06/21/2023 Active lamoTRIgine (LaMICtaL) 100 mg tablet Take 1 tablet (100 mg total) by mouth 2 (two) times a day. 180 tablet 3 11/15/2022 06/21/2023 Discontinue d(Reorder) lamoTRIgine (LaMICtaL) 25 mg tablet Take 2 tablets (50 mg total) by mouth daily. 180 tablet 3 11/15/2022 06/21/2023 Discontinue d(Reorder) LORazepam (ATIVAN) 0.5 mg tablet Take 1 tablet (0.5 mg total) by mouth 2 (two) times a day. 60 tablet 05/02/2023 06/21/2023 Discontinue d(Reorder) Active Problems Problem Noted Date [...] often do you attend chur ch or orthodoxy services? Never 08/14/2022 Do you belong to any clubs o r organizations such as holiness groups, unions, fraternal or athletic groups, or [...] and heating? Not hard at all 08/14/2022 [facility] [place] of Occupat ional Health - Occupational Stress [...] place to sleep or slept in a retirement (including now)? No 08/14/2022 Nutrition Answer Date [...] Sign Reading Time Taken Comments Blood Pressure 137/74 06/21/2023 10:48 AM CDT Pulse 73 06/21/2023 10:48 AM CDT Temperature - - Respiratory Rate - - Oxygen Saturation - - Inhaled Oxygen Concentration - - Weight 44.2 kg (97 lb 7.1 oz) 06/21/2023 10:48 A M CDT Height - - Body Mass Index - - Plan of Treatment Not on file
--- OUTSIDE RECORDS SUMMARY | 2023-07-20 12:34 | XMS_ITS | Clinical Summary ---
Author Name Unknown Organization [facility] Address [address] [place] [address] Care Team Providers Care Furniture Detailer Name Role Phone Unavailable Primary Care Provider Unavailabl e Source Comments Patient records contain information from all sites at [facility]. For routine questions regarding patient records, call [phone] during business hours, M-F 8:00 AM - 5:00 PM Central Time. Record requests for emergency care only can be directed to [phone] at any time.[facility] Allergies Active Allergy Reactions Criticality Noted [...] CDT Comprehensive Visit Department of Neurology in [place], [place] [address] [place] [phone] Kody Cruz M.D. 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 from Last 3 Months [...] often do you attend chur ch or taoist services? Never 08/14/2022 Do you belong to any clubs o r organizations such as adventist groups, unions, fraternal or athletic groups, or [...] and heating? Not hard at all 08/14/2022 [facility] [place] of Occupat ional Health - Occupational Stress [...] PHQ-2) 03/27/2023 Fall Risk Screen (Annual) 03/27/2023 COVID-19 Vaccine (2022-04 4 season) 2023 12/15/2022, 12/06/2021, 07/01/2021, Additional history exists DTaP,Tdap,and Td Vaccines (5 - Td or Tdap) 12/02/2026 12/02/2016, 11/15/2007, 06/09/2000, Additional history exists Pneumococcal vaccine (65+ years) Completed 11/19/19 15, 01/06/2012 Zoster Vaccines Completed 02/02/2021, 11/25, 03/26/2008 Influenza Vaccine Completed 12/15/2022, , 12/06/2021, Additional history exists
--- OUTSIDE RECORDS SUMMARY | 2023-07-20 12:34 | XMS_ITS ---
Author Name Unknown Organization [facility] Address [address] [place] [address] Care Team Providers Care Manager Environmental Name Role Phone Unavailable Unavailable Unavailable Surgery Details Not on file Complications Check Surgery Details section. Procedure Estimated Blood Loss Check Surgery Details section. Procedure Findings Check Surgery Details section. Procedure Specimens Taken Check Surgery Details section.
--- OUTSIDE RECORDS SUMMARY | 2023-07-20 12:34 | XMS_ITS | Encounter Summary ---
Author Name Unknown Organization [facility] Address [address] [place] [address] Care Team Providers Care Product Owner Name Role Phone Unavailable Primary Care Provider Unavailabl e Encounter Details Date Type Department Care Team (Late st Contact Info) Description 05/01/2023 Clinical Communication Department of Neurology in [place], [place] [address] [phone] Kody Cruz M.D. [address] [phone] Social History Tobacco Use Types Packs/Day Years [...] often do you attend chur ch or christianity services? Never 08/14/2022 Do you belong to any clubs o r organizations such as mormonism groups, unions, fraternal or athletic groups, or [...] and heating? Not hard at all 08/14/2022 [facility] [place] [facility] of Occupat ional Health - [...] place to sleep or slept in a longterm (including now)? No 08/14/2022 Nutrition Answer Date [...] encounter Miscellaneous Notes * Telephone Encounter - Sherry Ramon, L.P.N. - 05/02/2023 11:46 AM CST Pharmacy refill request for lorazepam 0.5 mg twice daily Last filled 03/31/2023 #60, no refills by Dr Sims Last visit 11/15/[address] Wolfe. Patient is scheduled to see Dr Cruz on 06/21/23 and is requesting refills to get her through to this appointment. Thank you. IFIED FLEX ENDOSCOPE REPROCESSOR documented in this encounter Plan of Treatment Not on file documented as of this encounter Visit Diagnoses Not on filedocumented in this encounter
--- OUTSIDE RECORDS SUMMARY | 2023-07-20 12:34 | XMS_ITS | Encounter Summary ---
Author Name Unknown Organization [facility] Address [address] [place] [address] Care Team Providers Care Fleet Maintenance Foreman Name Role Phone Unavailable Primary Care Provider Unavailabl e Reason for Referral * Outpatient (Routine) - Authorized Specialty Diagnoses / Procedures Referred By Rich goff Referred To Contact Neurology Kody Cruz M.D. [address] [place] [phone] [facility] Region Referral ID Status Reason Start Date Expiration Date V isits Requested Visits Authorized [id number] Authorized 06/21/2023 12/20/2024 1 1 * Medication Prior Authorization - Authorized Specialty Diagnoses / Procedures Referred By Rich goff Referred To Contact Kody Cruz M.D. 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 [address] [place] [phone] [facility] Region Referral ID Status Reason Start Date Expiration Date V isits Requested Visits Authorized [id number] Closed Specialty Services Required 04/04/2023 04/03/2024 1 1 Encounter Details Date Type Department Care Team (Latest Contact Info) Description 06/21/2023 11:00 AM CDT Comprehensive Visit Department of Neurology in [place], [place] [address] [place] [phone] Kody Cruz M.D. [address] [place] [phone] Localization Related Focal Partial Idiopathic Epilepsy [...] week 08/14/2022 How often do you attend [facility] or pentecostal services? Never 08/14/2022 Do you belong to any clubs o r organizations such as restorationist groups, unions, fraternal or athletic groups, or [...] Index - - documented in this encounter Patient Instructions * Attachments The following attachments cannot be sent through Care Everywhere. * Advance Health Care Directives (Malay) documented in this encounter Progress Notes * Kody Cruz M.D. - 06/21/2023 11:00 AM CDT SUBJECTIVE CHIEF COMPLAINT / REASON FOR VISIT Guadalupe Farias is a 78 y.o. female who presents for evaluation of Med Refill. HISTORY OF PRESENT ILLNESS Ms. Farias is a pleasant 78-year-old female with a history of focal epilepsy who returns in followup in that regard. Please recall she has last been managed by Dr. Wolfe over the last number of years. Please recall that she had tried a number of antiseizure medications over the years to help get her episodes under control with numerous side effects from various medications including Depakote, topiramate, gabapentin, Keppra. Finally began lamotrigine with slow uptitration which had led to good effect of her seizures without dramatic side effects. She currently takes lamotrigine 100 mg a.m., 50 mg around noon, and 100 mg in the evening. With this, she essentially only has several brief episodes a year of staring that can last anywhere from 20 to 30 seconds[address] not [address] and has not driven for a numberof years at this point. She also uses Ativan to help with her seizure control. REVIEW OF SYSTEMS REVIEW OF SYSTEMS OBJECTIVE PHYSICAL EXAM General: Female in her 70s, alert, attentive, no acute distress Vitals: BP 137/74, HR 73 Neuro: Alert and interactive. Cranial nerves grossly symmetric. Antigravity strength all extremities. Casual gait is normal. For details of the neurologic examination, please see the neurologic examination form. 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 Farias is happy with where her seizures are, in terms of their overall level of control. She does have several brief episodes a year, but these are relatively brief and infrequent, andso she can live with those where they are currently. She is not interested in up-titration or adding antiseizure med at present, given her past experience with side effects related to various antiseizure medication which I think is reasonable. I refilled her lamotrigine prescription. I also refilled her lorazepam prescription. I did discuss that in the future we could consider transition to Klonopin for longer release coverage of benzodiazepine, if possible. Questions answered to the best of my ability. We will plan to see her back in 1 year, potentially via video visit. 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
--- OUTSIDE RECORDS SUMMARY | 2023-07-20 12:35 | XMS_ITS | Encounter Summary ---
Author Name Unknown Organization [facility] Address [address] [place] [address] Care Team Providers Care Review Consultant Name Role Phone Unavailable Primary Care Provider Unavailabl e Encounter Details Date Type Department Care Team (Late st Contact Info) Description 04/04/2023 Clinical Communication Department of Neurology in [place], [place] [address] [place] [phone] Kody Cruz M.D. [address] [place] [phone] Social History Tobacco Use Types Packs/Day Years [...] often do you attend chur ch or jainism services? Never 08/14/2022 Do you belong to any clubs o r organizations such as advent groups, unions, fraternal or athletic groups, or [...] and heating? Not hard at all 08/14/2022 [facility] of Occupat ional Health - [...]
--- OUTSIDE RECORDS SUMMARY | 2023-07-20 12:35 | XMS_ITS | Clinical Summary ---
Author Name Unknown Organization [facility] Address [place], [place] [address] Care Team Providers Care Calender Operator Helper Name Role Phone Karen David MD Primary [...] Take 1 Tablet by mouth once daily. 05/21/2021 Active ketorolac 0.4 % (ACULAR LS) 0.4 % ophthalmic solution Place 1 Drop into both eyes one time if needed. 12/22/2020 Active lamoTRIgine (LAMICTAL) 25 mg tablet Take 50 mg by mouth once daily. 04/08/2021 Active LORazepam (ATIVAN) 0.5 mg tab Take 1 Tablet by mouth once every other day if needed. 07/17/2021 Active methylcellulose, Laxative, (CITRUCEL) 500 mg tab Take 3 Tablets by mouth one time if needed. Active omeprazole (PRILOSEC) 20 mg Delayed-Release capsule Take 1 Capsule by mouth one time. 05/11/2021 Active ascorbic acid, vitamin C, (VITAMIN C) 1,000 mg tablet Take 1 Tablet by mouth once daily. 01/03/2017 Active dicyclomine (BENTYL) 10 mg capsule Take 1 Capsule by mouth one time if needed. 05/08/2021 Active aspirin (ECOTRIN) 81 mg enteric coated tablet Take 1 Tablet by mouth once daily. Active dilTIAZem CD (CARDIZEM CD) 180 mg extended release 24 hr capsuleIndication s:Tachyarrhythmia Take 1 Capsule (180 mg) by mouth once daily. 90 Capsule 3 12/20/2022 Active ibuprofen (ADVIL; MOTRIN) 600 mg tablet Take 1 Tablet by mouth 3 times daily with meals. 06/02/2017 06/27/2023 Discontinued (*Med complete/Reg imen complete/Lev el of care change) Active Problems No known active problems Encounters Date Type Department Care Team Description 06/27/2023 10:00 AM CDT Office Visit [facility] [address] [facility] [place] [phone] Kody Cat MD Procedure (Bilateral L4-5 intra-articular facet injection ) 06/27/2023 Orders Only [facility] Scanner 1 scan: (1-Ord) [facility], RIGHT L4-5/LRFT LA-5 INTRA ARTICULAR INJECTION, 06/27/2023 06/25/2023 Travel 06/16/2023 Transcribe Orders [facility] [address] [place] [address] Kody Cat MD from Last 3 Months Immunizations Name Administration Dates Next Due DT [...] 2011 Medicare Wellness for age 65+ 2011 Influenza for age 65+ 11/26/2023 12/04/2020, 009 Tetanus booster 12/02/2026 12/02/2016, 10/2016, 11/15/2007, Additional history exists Pneumococcal series for age 65+ Completed 5, 01/06/2012 Tdap Completed 12/02/2016, 10/2016, 11/15/2007, Additional history exists Zoster (shingles) series for age 50+ Completed 02/02/2021, 12/04/2020, 03/26/2008 COVID-19 vaccine series Completed 12/16/19 23, 12/06/2021, 07/01/2021, Additional history exists Procedures Procedure Name Priority Date/Time Associated Diagnosis Comments AMB EPIDURAL STEROID INJECTION Routine 06/27/2023 8:00 AM CDT Spondylosis of lumbosacral region without myelopathy or radiculopathy SCAN-OPERATIVE/PRO CEDURE REPORT 06/27/2023 12:00 AM CDT from Last 3 Months Results * SCAN-OPERATIVE/PROCEDURE REPORT (06/27/2023 12:00 AM CDT) Scanner OTHER from Last 3 Months Care Teams Calender Operator Helper Relationship Specialty Start Date End Date Karen David MD [address] [place] [address] PCP - General Family Practice 11/24/16
--- OUTSIDE RECORDS SUMMARY | 2023-07-20 12:35 | XMS_ITS | Encounter Summary ---
Author Name Unknown Organization [facility] Address [address] [place] [address] Care Team Providers Care Electric Razor Mechanic Name Role Phone Unavailable Primary Care Provider Unavailabl e Encounter Details Date Type Department Care Team (Late st Contact Info) Description 03/31/2023 Clinical Communication Department of Neurology in [place], [place] [address] [phone] Kody Cruz M.D. [address] [phone] Social History Tobacco Use Types Packs/Day Years [...] often do you attend chur ch or rastafari services? Never 08/14/2022 Do you belong to any clubs o r organizations such as mosque groups, unions, fraternal or athletic groups, or [...] and heating? Not hard at all 08/14/2022 [facility]at ional [facility] - Occupational [...] place to sleep or slept in a long-term (including now)? No 08/14/2022 Nutrition Answer Date [...] Breonna Rowe L.PLanaN. - 04/11/2023 9:46 AM ENGINEERING PROGRAM MANAGER Patient is scheduled 06/21/[address] Cruz. NEERING PROGRAM MANAGER * Telephone Encounter - Breonna Rowe L.PLanaN. - 03/31/2023 3:57 PM ENGINEERING PROGRAM MANAGER Patient notified of status of refill. Attempted to schedule patient with Dr. Cruz but was told that there has to be an order. Patient informed that Dr. Cruz is out and once order has been placed will be notified. NEERING PROGRAM MANAGER documented in this encounter Plan of Treatment Not on file documented as of this encounter Visit Diagnoses Not on filedocumented in this encounter
== END 2023-07-11 11:30 | disposition home or self-care (01) ==
LOC: NFLDREF 07-20 12:32
PROVIDERS: PCP Family Medicine; Referring Provider Family Medicine; Visit Provider Family Medicine
DX: N18.9 Chronic kidney disease, unspecified (principal); Z79.1 Long term (current) use of non-steroidal anti-inflammatories (NSAID)
CPT/HCPCS: 80053; 82043; 82570

== ENCOUNTER 2023-10-03 10:00 | Outpatient (CLI) | payer MEDICARE, SELFPAY ==
--- OUTSIDE RECORDS SUMMARY | 2023-10-04 08:49 | XMS_ITS | Clinical Summary ---
Author Organization [facility] Address [place], [place] [address] Care Team Providers Care Charge Account Identification Clerk Name Role Phone Karen David MD Primary [...] once daily. 90 Capsule 3 12/20/2022 Active Active Problems No known active problems Immunizations Name Administration Dates Next Due DT [...] 65+ 2011 COVID-19 vaccine series (2022- season) 2023 12/15/2022, 12/06/2021, 07/01/2021, Additional history exists Influenza for age 65+ 11/26/2023 12/04/2020, 009 Tetanus booster 12/02/2026 12/02/2016, 10/2016, 11/15/2007, Additional history exists Pneumococcal series for age 65+ Completed 5, 01/06/2012 Tdap Completed 12/02/2016, 10/2016, 11/15/2007, Additional history exists Zoster (shingles) series for age 50+ Completed 02/02/2021, 12/04/2020, 03/26/2008 Care Teams Charge Account Identification Clerk Relationship Specialty Start Date End Date Karen David MD [address] [place], [place] [phone] PCP - General Family Practice 11/24/16
--- OUTSIDE RECORDS SUMMARY | 2023-10-04 08:49 | XMS_ITS ---
Author Organization [facility] Address [address] [place] [address] Care Team Providers Care Vault Maker Name Role Phone Unavailable Unavailable Unavailable Surgery Details Not on file Complications Check Surgery Details section. Procedure Estimated Blood Loss Check Surgery Details section. Procedure Findings Check Surgery Details section. Procedure Specimens Taken Check Surgery Details section.
--- OUTSIDE RECORDS SUMMARY | 2023-10-04 08:49 | XMS_ITS | Clinical Summary ---
Author Organization [facility] Address [address] [place] [address] Care Team Providers Care Emergency Specialist Name Role Phone Unavailable Primary Care Provider Unavailabl e Source Comments Patient records contain information from all sites at [facility]. For routine questions regarding patient records, call [phone] during business hours, M-F 8:00 AM - 5:00 PM Central Time. Record requests for emergency care only can be directed to [phone] at any time.[facility] Allergies Active Allergy Reactions Criticality Noted Date [...] 1 tablet by mouth daily. 10/28/2016 Active glucosamine-chondro it-vit C-Mn (GLUCOSAMINE-CHONDR OITIN COMPLX) per capsule Take 1 capsule by mouth 3 (three) times a day. 10/28/2016 Active multivitamin tablet Take 1 tablet by mouth daily. 10/28/2016 Active polyvinyl alcohol-povidone, PF, (REFRESH CLASSIC, PF,) 1.4-0.6 [...] a day. 120 tablet 2 06/21/2023 Active Active Problems Problem Noted Date Diagnosed Date [...] often do you attend chur ch or druze services? Never 08/14/2022 Do you belong to [...] and heating? Not hard at all 08/14/2022 [facility] of Occupat ional Health - Occupational Stress [...] place to sleep or slept in a halfway (including now)? No 08/14/2022 Nutrition Answer Date [...] Fall Risk Screen (Annual) 03/27/2023 COVID-19 Vaccine (2022-2 4 season) 2023 12/15/2022, 12/06/2021, 07/01/2021, Additional history exists Influenza Vaccine (#1) 2023 , 12/06/2021, 12/04/2020, Additional history exists DTaP,Tdap,and Td Vaccines (5 - Td or Tdap) 12/02/2026 12/02/2016, 11/15/2007, 06/09/2000, Additional history exists Pneumococcal vaccine (65+ years) Completed 11/19/19, 01/06/2012 Zoster Vaccines Completed 02/02/2021, 11/25, 03/26/2008
--- OUTSIDE RECORDS SUMMARY | 2023-10-04 08:49 | XMS_ITS | Referral Summary ---
Author Organization [facility] Address [address] [place] [address] Care Team Providers Care It Support Analyst Name Role Phone Unavailable Primary Care Provider Unavailabl e Source Comments Patient records contain information from all sites at [facility]. For routine questions regarding patient records, call [phone] during business hours, M-F 8:00 AM - 5:00 PM Central Time. Record requests for emergency care only can be directed to [phone] at any time.[facility] Allergies Active Allergy Reactions Criticality Noted Date [...] often do you attend chur ch or denominational services? Never 08/14/2022 Do you belong to [...] and heating? Not hard at all 08/14/2022 [facility] of Occupat ional Health - Occupational Stress [...]
== END 2023-10-03 10:01 | disposition home or self-care (01) ==
LOC: NFLDREF 10-04 08:44
PROVIDERS: PCP Family Medicine; Referring Provider Family Medicine; Visit Provider Family Medicine
DX: Z79.1 Long term (current) use of non-steroidal anti-inflammatories (NSAID) (principal)
CPT/HCPCS: 80053

== ENCOUNTER 2023-11-02 12:51 | Outpatient (CLI) | payer MEDICARE, SELFPAY ==
--- OUTSIDE RECORDS SUMMARY | 2023-11-02 12:53 | XMS_ITS | Clinical Summary ---
Author Organization [facility] Address [address] [place] [address] Care Team Providers Care Cryptozoologist Name Role Phone Unavailable Primary Care Provider Unavailabl e Source Comments Patient records contain information from all sites at [facility]. For routine questions regarding patient records, call [phone] during business hours, M-F 8:00 AM - 5:00 PM Central Time. Record requests for emergency care only can be directed to [phone] at any time.[facility] Allergies Active Allergy Reactions Criticality Noted Date [...] often do you attend chur ch or mormonism services? Never 08/14/2022 Do you belong to any clubs o r organizations such as buddhist groups, unions, fraternal or athletic groups, or [...] and heating? Not hard at all 08/14/2022 [facility] of Occupat ional Health - Occupational Stress [...]
--- OUTSIDE RECORDS SUMMARY | 2023-11-02 12:53 | XMS_ITS | Clinical Summary ---
Author Organization [facility] Address [place], [place] [address] Care Team Providers Care Hog Worker Name Role Phone Karen David MD Primary [...] Care Team (Late st Contact Info) Description 11/29/2023 2:40 PM CDT Office Visit [facility] [address] [place] [address] Kody Cat MD [address] [place] [address] Health Maintenance Due Date Last Done Comments Depression screening for age 12+ 1958 BMI (ht and wt on same day) for age 18+ 1964 Hepatitis C screening for ag e 18-79 1964 DEXA/DXA scan for age 65+ 2011 Medicare Wellness for age 65+ 2011 COVID-19 vaccine series ( season) 2023 12/15/2022, 12/06/2021, 07/01/2021, Additional history exists Influenza for age 65+ 11/26/2023 12/04/2020, 009 Tetanus booster 12/02/2026 12/02/2016, 0 10/2016, 11/15/2007, Additional history exists Pneumococcal series for age 65+ Completed 5, 01/06/2012 Tdap Completed 12/02/2016, 0 10/2016, 11/15/2007, Additional history exists Zoster (shingles) series for age 50+ Completed 02/02/2021, 12/04/2020, 03/26/2008 Care Teams Hog Worker Relationship Specialty Start Date End Date Karen David MD [address] [place] [address] PCP - General Family Practice 11/24/16
--- OUTSIDE RECORDS SUMMARY | 2023-11-02 12:53 | XMS_ITS ---
Author Organization [facility] Address [address] [place] [address] Care Team Providers Care Internet Security Specialist Name Role Phone Unavailable Unavailable Unavailable Surgery Details Not on file Complications Check Surgery Details section. Procedure Estimated Blood Loss Check Surgery Details section. Procedure Findings Check Surgery Details section. Procedure Specimens Taken Check Surgery Details section.
--- OUTSIDE RECORDS SUMMARY | 2023-11-02 12:53 | XMS_ITS | Referral Summary ---
Author Organization [facility] Address [address] [place] [address] Care Team Providers Care Fire Prevention Engineer Name Role Phone Unavailable Primary Care Provider Unavailabl e Source Comments Patient records contain information from all sites at [facility]. For routine questions regarding patient records, call [phone] during business hours, M-F 8:00 AM - 5:00 PM Central Time. Record requests for emergency care only can be directed to [phone] at any time.[facility] Allergies Active Allergy Reactions Criticality Noted Date [...] any clubs o r organizations such as restoration groups, unions, fraternal or athletic groups, or [...] Not hard at all 08/14/2022 [facility] of Occupat ional Health - Occupational Stress [...]
--- NOTE | 2023-11-02 13:00 | CRLHL7_ITS ---
For Patients: As a result of the Century Cures Act, medical imaging exams and procedure reports are released immediately into your electronic medical record. You may view this report before your referring provider. If you have questions, please contact your health care provider. BILATERAL SCREENING MAMMOGRAM WITH COMPUTER-AIDED DETECTION AND TOMOSYNTHESIS TECHNIQUE: CC and MLO views were obtained. These mammographic images have been obtained using full-field digital technique. These mammographic images were interpreted with the benefit of computer-aided detection. Breast Tomosynthesis was used in this interpretation. COMPARISON FILM: 09/14/22, 07/20/21, 07/03/20. FINDINGS: The breasts are heterogeneously dense, which may obscure small masses. IMPRESSION: There is no radiographic evidence for malignancy. ASSESSMENT: BI-RADS Category 1: Negative RECOMMENDATION: Routine screening mammogram in 1 year. A lay language report of this examination will be provided to the patient. Murali Orr M.D. Diagnostic Radiologist [email or web address] DK/lit / bM/Dictated by: Murali Orr MD @ 11/03/2023 9:17:00 AM (Electronically Signed)
== END 2023-11-02 12:52 | disposition home or self-care (01) ==
LOC: MAMMO 12:52
PROVIDERS: PCP Family Medicine; Visit Provider Obstetrics & Gynecology
DX: Z12.31 Encounter for screening mammogram for malignant neoplasm of breast (principal); R92.2 Inconclusive mammogram
CPT/HCPCS: 77063; 77067

== ENCOUNTER 2024-01-03 10:00 | Outpatient (CLI) | payer MEDICARE, SELFPAY ==
--- OUTSIDE RECORDS SUMMARY | 2024-01-05 11:03 | XMS_ITS | Clinical Summary ---
Author Organization [facility] Address [address] [place] [address] Care Team Providers Care Head Insulation Board Saw Operator Name Role Phone Unavailable Primary Care Provider Unavailabl e Source Comments Patient records contain information from all sites at [facility]. For routine questions regarding patient records, call [phone] during business hours, M-F 8:00 AM - 5:00 PM Central Time. Record requests for emergency care only can be directed to [phone] at any time.[facility] Allergies Active Allergy Reactions Criticality Noted Date [...] day. 180 tablet 3 06/21/2023 Active LORazepam (Ativan) 0.5 mg tablet Take 1 tablet (0.5 mg total) by mouth 2 (two) times a day. 60 tablet 2 12/07/2023 Active LORazepam (ATIVAN) 0.5 mg tablet Take 1 tablet (0.5 mg total) by mouth 2 (two) times a day. 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 11/28/2023 Refill Department of Neurology in [place], [place] [address] [place] [phone] Kody Cruz M.D. Med Refill from Last 3 Months Social History Tobacco [...] often do you attend chur ch or taoism services? Never 08/14/2022 Do you belong to [...] hard at all 08/14/2022 [facility] of Occupat ional Health - Occupational Stress [...] Fall Risk Screen (Annual) 03/27/2023 COVID-19 Vaccine (2023-2 5 season) 2023 12/15/2022, 12/06/2021, 07/01/2021, Additional history exists Influenza Vaccine (#1) 2023 , 12/06/2021, 12/04/2020, Additional history exists DTaP,Tdap,and Td Vaccines (5 - Td or Tdap) 12/02/2026 12/02/2016, 11/15/2007, 06/09/2000, Additional history exists Pneumococcal vaccine (65+ years) Completed 11/19/19 15, 01/06/2012 Zoster Vaccines Completed 02/02/2021, 11/25, 03/26/2008 RSV vaccine - (32-3 6 weeks) or 60+ years Completed 12/15/2022
--- OUTSIDE RECORDS SUMMARY | 2024-01-05 11:03 | XMS_ITS ---
Author Organization [facility] Address [address] [place] [address] Care Team Providers Care Vice President Biostatistics Name Role Phone Unavailable Unavailable Unavailable Surgery Details Not on file Complications Check Surgery Details section. Procedure Estimated Blood Loss Check Surgery Details section. Procedure Findings Check Surgery Details section. Procedure Specimens Taken Check Surgery Details section.
--- OUTSIDE RECORDS SUMMARY | 2024-01-05 11:03 | XMS_ITS | Referral Summary ---
Author Organization [facility] Address [address] [place] [address] Care Team Providers Care Rn Clinical Documentation Name Role Phone Unavailable Primary Care Provider Unavailabl e Source Comments Patient records contain information from all sites at [facility]. For routine questions regarding patient records, call [phone] during business hours, M-F 8:00 AM - 5:00 PM Central Time. Record requests for emergency care only can be directed to [phone] at any time.[facility] Encounters Date Type Department Care Team Description 12/08/2023 Clinical Communication Department of Neurology in [place], [place] [address] [phone] Kody Cruz M.D. 11/28/2023 Refill Department of Neurology in [place], [place] [address] [place] [phone] Kody Cruz M.D. Med Refill from Last 3 Months Allergies Active Allergy [...] heating? Not hard at all 08/14/2022 [facility] of Occupat ional Health - Occupational Stress [...]
--- OUTSIDE RECORDS SUMMARY | 2024-01-05 11:04 | XMS_ITS | Clinical Summary ---
Author Organization [email or web address] Address [place] [address] Care Team Providers Care Dry Room Operator Name Role Phone Karen David MD Primary [...] once daily. 90 Capsule 3 12/20/2022 Active lamoTRIgine 100 mg tablet Take 100 mg by mouth. 06/21/2023 Active celecoxib (CELEBREX) 100 mg capsule 10/11/2023 Active clobetasol (TEMOVATE) 0.05 % ointment 04/26/2023 Active cholecalciferol (VITAMIN D3) 1,000 unit capsule 1,000 units. Active Active Problems No known active problems Encounters Date Type Department Care Team Description 11/29/2023 2:40 PM CDT Office Visit [facility] [address] [place] [phone] Kody Cat MD Musculoskeletal Problem (Follow up back pain, bilateral L4-5 intra articular facet injections on 06/27/23) 11/29/2023 Travel from Last 3 Months Immunizations Name Administration [...] Never Smokeless Tobacco: Never Tobacco Cessation:Counseling Given: Yes Alcohol Use Standard Drinks/Week Comments Not Currently [...] Sign Reading Time Taken Comments Blood Pressure 153/77 11/29/2023 3:02 PM CDT Pulse 64 11/29/2023 3:02 PM CDT Temperature 36.7 ??C (98 ??F) 11/29/2023 3:02 PM CDT Respiratory Rate 16 12/30/2016 10:1 8 AM CDT Oxygen Saturation 97% 11/29/2023 3:02 PM CDT Inhaled Oxygen Concentration - - Weight 44.6 kg (98 lb 4.8 oz) 11:04 AM CDT with shoes Height - - Body Mass Index - - Plan of Treatment Upcoming Encounters Date Type Department Care Team (Late st Contact Info) Description 01/31/2024 2:20 PM FLASK FITTER Office Visit [facility] [address] [place] [address] Kody Cat MD [address] [place] [address] Health Maintenance Due Date Last Done Comments Depression screening for age 12+ 1958 BMI (ht and wt on same day) for age 18+ 1964 Hepatitis C screening for ag e 18-79 1964 DEXA/DXA scan for age 65+ 2011 Medicare Wellness for age 65+ 2011 RSV vaccine for adults or (1 - 1-dose 75+ series) 2021 COVID-19 vaccine series ( season) 2023 12/15/2022, 12/06/2021, 07/01/2021, Additional history exists Influenza for age 65+ 11/26/2023 12/04/2020, 009 Tetanus booster 12/02/2026 12/02/2016, 10/2016, 11/15/2007, Additional history exists Pneumococcal series for age 65+ Completed 5, 01/06/2012 Tdap Completed 12/02/2016, 10/2016, 11/15/2007, Additional history exists Zoster (shingles) series for age 50+ Completed 02/02/2021, 12/04/2020, 03/26/2008 Care Teams Dry Room Operator Relationship Specialty Start Date End Date Karen David MD [address] [place], [place] [phone] PCP - General Family Practice 11/24/16
--- OUTSIDE RECORDS SUMMARY | 2024-01-05 11:04 | XMS_ITS | Encounter Summary ---
Author Organization [facility] Address [address] [place] [address] Care Team Providers Care Printer Small Print Shop Name Role Phone Unavailable Primary Care Provider Unavailabl e Reason for Visit * Reason Comments Med Refill Encounter Details Date Type Department Care Team (Late st Contact Info) Description 11/28/2023 Refill Department of Neurology in [place], [place] [address] [phone] Kody Cruz M.D. [address] [phone] Med Refill Social History Tobacco Use Types [...] often do you attend chur ch or scientologist services? Never 08/14/2022 Do you belong to [...] and heating? Not hard at all 08/14/2022 [facility] of Occupat ional Health - Occupational Stress [...]
--- OUTSIDE RECORDS SUMMARY | 2024-01-05 11:04 | XMS_ITS | Encounter Summary ---
Author Organization [facility] Address [address] [place] [address] Care Team Providers Care Pallet Rectifier Name Role Phone Unavailable Primary Care Provider Unavailabl e Encounter Details Date Type Department Care Team (Late st Contact Info) Description 12/08/2023 Clinical Communication Department of Neurology in [place], [place] [address] [phone] Kody Cruz M.D. [address] [phone] Social History Tobacco Use Types Packs/Day Years [...] often do you attend chur ch or gnosticist services? Never 08/14/2022 Do you belong to any clubs o r organizations such as worship groups, unions, fraternal or athletic groups, or [...] and heating? Not hard at all 08/14/2022 [facility] of Occupat ional Health - Occupational [...] place to sleep or slept in a [place] facility (including now)? No 08/14/2022 Nutrition Answer Date [...] Telephone Encounter - Sherry Ramon, L.P.N. - 12/08/2023 1:16 PM CDT Spoke with pharmacist. Questions were answered. documented in this encounter Plan of Treatment Not on file documented as of this encounter Visit Diagnoses Not on filedocumented in this encounter
== END 2024-01-03 10:01 | disposition home or self-care (01) ==
LOC: NFLDREF 01-05 10:57
PROVIDERS: PCP Family Medicine; Referring Provider Family Medicine; Visit Provider Family Medicine
DX: E78.5 Hyperlipidemia, unspecified (principal); R53.83 Other fatigue; M85.80 Other specified disorders of bone density and structure, unspecified site; M81.0 Age-related osteoporosis without current pathological fracture; Z79.1 Long term (current) use of non-steroidal anti-inflammatories (NSAID)
CPT/HCPCS: 80053; 80061; 82306; 82607; 84443

== ENCOUNTER 2024-02-14 14:00 | Outpatient (RCR) | payer MEDICARE, SELFPAY | END 2024-05-15 15:02 | disposition home or self-care (01) | PROVIDERS: PCP Family Medicine; Visit Provider Dentist General Practice | DX: M26.609 Unspecified temporomandibular joint disorder, unspecified side (principal); M79.18 Myalgia, other site; Z74.09 Other reduced mobility; Z51.89 Encounter for other specified aftercare | CPT/HCPCS: 97110; 97140; 97161 ==

== ENCOUNTER 2024-06-05 11:28 | Outpatient (CLI) | payer MEDICARE, SELFPAY | END 2024-06-05 11:29 | disposition home or self-care (01) | LOC: NFLDREF 06-08 08:18 | PROVIDERS: PCP Family Medicine; Referring Provider Family Medicine; Visit Provider Family Medicine | DX: N18.31 Chronic kidney disease, stage 3a (principal) | CPT/HCPCS: 80053 ==

== ENCOUNTER 2024-07-02 10:00 | Outpatient (CLI) | payer MEDICARE, SELFPAY | END 2024-07-02 10:01 | disposition home or self-care (01) | LOC: NFLDREF 07-06 00:42 | PROVIDERS: PCP Family Medicine; Referring Provider Family Medicine; Visit Provider Family Medicine | DX: N18.32 Chronic kidney disease, stage 3b (principal) | CPT/HCPCS: 80048 ==

== ENCOUNTER 2024-08-01 11:29 | Outpatient (CLI) | payer MEDICARE, SELFPAY | END 2024-08-01 11:30 | disposition home or self-care (01) | LOC: NFLDREF 11:31 | PROVIDERS: PCP Family Medicine; Visit Provider Family Medicine | DX: N18.32 Chronic kidney disease, stage 3b (principal) | CPT/HCPCS: 80048 ==

== ENCOUNTER 2024-08-13 14:31 | Outpatient (CLI) | payer MEDICARE, SELFPAY | END 2024-08-13 14:32 | disposition home or self-care (01) | LOC: NFLDREF 14:32 | PROVIDERS: PCP Family Medicine; Visit Provider Family Medicine | DX: N18.32 Chronic kidney disease, stage 3b (principal) | CPT/HCPCS: 80048 ==

== ENCOUNTER 2024-08-15 14:00 | Outpatient (CLI) | payer MEDICARE, SELFPAY | END 2024-08-15 14:01 | disposition home or self-care (01) | LOC: NFLDREF 08-21 18:08 | PROVIDERS: PCP Family Medicine; Referring Provider Family Medicine; Visit Provider Family Medicine | DX: N18.32 Chronic kidney disease, stage 3b (principal); R82.90 Unspecified abnormal findings in urine | CPT/HCPCS: 87086 ==

== ENCOUNTER 2024-08-16 10:18 | Outpatient (CLI) | payer MEDICARE, SELFPAY ==
--- NOTE | 2024-08-16 10:45 | CRLHL7_ITS ---
For Patients: As a result of the Century Cures Act, medical imaging exams and procedure reports are released immediately into your electronic medical record. You may view this report before your referring provider. If you have questions, please contact your health care provider. CLINICAL HISTORY: Chronic kidney disease COMPARISON: CT 07/02/2018 TECHNIQUE: Murray scale and color Doppler images were acquired of the kidneys and urinary bladder. FINDINGS: Sonographic images reveal a symmetric appearance of the kidneys. There is no evidence of hydronephrosis, mass or calculus. The right kidney measures 7.9cm in length and the left kidney measures 7.6cm in length. The renal cortex measures 10 millimeters on the right and 13 millimeters on the left. The urinary bladder appears normal. Color Doppler images reveal a normal appearance of both ureteral jets. Prevoid bladder volume 39 cc. Postvoid bladder volume 6 cc. Bladder wall 2 millimeters. IMPRESSION: No hydronephrosis. Dictated by Murali Orr MD @ 08/16/2024 1:03:46 PM (Electronically Signed)
== END 2024-08-16 10:19 | disposition home or self-care (01) ==
LOC: US 10:18
PROVIDERS: PCP Family Medicine; Visit Provider Family Medicine
DX: N18.32 Chronic kidney disease, stage 3b (principal)
CPT/HCPCS: 76770

== ENCOUNTER 2024-08-29 10:25 | Outpatient (CLI) | payer MEDICARE, SELFPAY | END 2024-08-29 10:26 | disposition home or self-care (01) | LOC: NFLDREF 08-31 08:09 | PROVIDERS: PCP Family Medicine; Referring Provider Family Medicine; Visit Provider Family Medicine | DX: N18.32 Chronic kidney disease, stage 3b (principal) | CPT/HCPCS: 80053 ==

== ENCOUNTER 2024-09-24 10:57 | Outpatient (CLI) | payer MEDICARE, SELFPAY | END 2024-09-24 10:58 | disposition home or self-care (01) | LOC: NFLDREF 09-28 10:47 | PROVIDERS: PCP Family Medicine; Referring Provider Family Medicine; Visit Provider Family Medicine | DX: N18.32 Chronic kidney disease, stage 3b (principal) | CPT/HCPCS: 80048 ==

== ENCOUNTER 2024-11-12 14:13 | Outpatient (CLI) | payer MEDICARE, SELFPAY ==
--- NOTE | 2024-11-12 14:40 | CRLHL7_ITS ---
For Patients: As a result of the Century Cures Act, medical imaging exams and procedure reports are released immediately into your electronic medical record. You may view this report before your referring provider. If you have questions, please contact your health care provider. INDICATION: BILATERAL SCREENING MAMMOGRAM, ASYMPTOMATIC 79 Y/O FEMALE COMPARISON: 11/02/2023, 09/14/2022, 07/29/2021, 07/20/2021 TECHNIQUE: Digital mammogram in CC and MLO projections including computer-aided detection (CAD) and tomosynthesis. BREAST COMPOSITION: The breasts are heterogeneously dense, which may obscure small masses. FINDINGS: No suspicious findings. ASSESSMENT: BI-RADS 1 Negative RECOMMENDATION: Annual screening mammogram. A lay language report of this examination will be provided to the patient. Dictated by: Marisol Schmidt MD @ 11/12/2024 15:57:29 (Electronically Signed)
== END 2024-11-12 14:14 | disposition home or self-care (01) ==
LOC: MAMMO 14:13
PROVIDERS: PCP Family Medicine; Visit Provider Family Medicine
DX: Z12.31 Encounter for screening mammogram for malignant neoplasm of breast (principal); R92.333 Mammographic heterogeneous density, bilateral breasts
CPT/HCPCS: 77063; 77067

== ENCOUNTER 2024-12-19 10:50 | Outpatient (CLI) | payer MEDICARE, SELFPAY | END 2024-12-19 10:51 | disposition home or self-care (01) | LOC: NFLDREF 12-23 04:31 | PROVIDERS: PCP Family Medicine; Referring Provider Family Medicine; Visit Provider Family Medicine | DX: M85.89 Other specified disorders of bone density and structure, multiple sites (principal); N18.32 Chronic kidney disease, stage 3b; E78.5 Hyperlipidemia, unspecified; R74.01 Elevation of levels of liver transaminase levels; R79.89 Other specified abnormal findings of blood chemistry | CPT/HCPCS: 80053; 80061; 82306 ==

== ENCOUNTER 2025-01-31 15:29 | Outpatient (CLI) | payer MEDICARE, SELFPAY | END 2025-01-31 15:30 | disposition home or self-care (01) | LOC: NFLDREF 15:31 | PROVIDERS: PCP Family Medicine; Visit Provider Family Medicine | DX: N18.32 Chronic kidney disease, stage 3b (principal); R10.9 Unspecified abdominal pain | CPT/HCPCS: 80053 ==

== ENCOUNTER 2025-02-07 14:41 | Outpatient (CLI) | payer MEDICARE, SELFPAY ==
--- NOTE | 2025-02-07 15:00 | CRLHL7_ITS ---
For Patients: As a result of the Century Cures Act, medical imaging exams and procedure reports are released immediately into your electronic medical record. You may view this report before your referring provider. If you have questions, please contact your health care provider. Indication: RT FLANK PAIN WRAPS AROUND TO THE FRONT AND DOWN INTO GROIN AREA. KNOW CKD Technique: Noncontrast CT abdomen and pelvis Please note that all CT scans at this facility use dose modulation, iterative reconstruction, and/or weight-based dosing when appropriate to reduce radiation dose to as low as reasonably achievable. Comparison: 07/02/2018 Findings: Linear scarring within the anterior left lung base. Chronic reticulonodular densities within the right middle lobe and right lower lobe. No pleural effusion. Degenerative spondylolisthesis of L4 on L5 and L5 on S1. No vertebral body compression fracture. Dextroscoliotic deformity of the lumbar spine. Noncontrast enhanced liver is unremarkable. Normal spleen. Pancreas is similar. No adrenal nodule. No biliary obstruction. No renal stone. No hydronephrosis. Vascular calcifications. No ureteral or bladder stone. No bowel obstruction. No free air or free fluid. No adenopathy. Impression: No evidence of urinary tract calculus. Chronic changes within both lung bases. No bowel obstruction. Moderately increased stool in the colon could suggest constipation. Please note that all CT scans at this facility use dose modulation, iterative reconstruction, and/or weight-based dosing when appropriate to reduce radiation dose to as low as reasonably achievable. Dictated by Murali Orr MD @ 02/07/2025 4:06:29 PM (Electronically Signed)
== END 2025-02-07 14:42 | disposition home or self-care (01) ==
LOC: CT 14:42
PROVIDERS: PCP Family Medicine; Visit Provider Family Medicine
DX: R10.9 Unspecified abdominal pain (principal)
CPT/HCPCS: 74176

== ENCOUNTER 2025-02-24 10:12 | Outpatient (CLI) | payer MEDICARE, SELFPAY | END 2025-02-24 10:13 | disposition home or self-care (01) | LOC: NFLDREF 02-28 06:58 | PROVIDERS: PCP Family Medicine; Referring Provider Family Medicine; Visit Provider Family Medicine | DX: N18.32 Chronic kidney disease, stage 3b (principal); R74.01 Elevation of levels of liver transaminase levels | CPT/HCPCS: 80053 ==